=== PATIENT | female | born 1940 | race Caucasian/White ===

== ENCOUNTER 2020-03-07 09:04 | Outpatient (REF) | payer MEDICARE, OTHER, SELFPAY ==
--- NOTE | 2020-03-07 | MM_ITS ---
EXAMINATION: MM SCREENING DIGITAL BREAST TOMOSYNTHESIS, BILATERAL CLINICAL INFORMATION: Screening. Asymptomatic. The lifetime risk of breast cancer based on the Tyrer-Cuzick Model is 4%. COMPARISON: Mammography: 03/02/2019, 02/28/2018, 02/25/2017 TECHNIQUE: Digital breast tomosynthesis is performed in both the craniocaudal and mediolateral oblique views along with computer-aided detection (CAD). Synthesized 2D images are generated from the tomosynthesis. FINDINGS: There are scattered areas of fibroglandular density (ACR BI-RADS breast composition Category b). Parenchymal pattern is similar to prior studies. There is stable circumscribed nodule likely intraparenchymal node posterior upper outer right breast. Small circumscribed nodule again seen anterior 1:00 right breast. There are bilateral round and rim and ductal secretory calcifications again noted. There is no significant mass or architectural abnormality or abnormal calcifications. No significant changes. IMPRESSION: No significant changes from prior studies. ASSESSMENT: BI-RADS 2: Benign RECOMMENDATION: Routine annual mammography screening. This patient's information was entered into a reminder system with a target due date for their next mammogram.
== END 2020-03-07 09:05 | disposition home or self-care (01) ==
LOC: HO.MAMMO 09:04
PROVIDERS: PCP Internal Medicine; Visit Provider Internal Medicine
DX: Z12.31 Encounter for screening mammogram for malignant neoplasm of breast (principal)
CPT/HCPCS: 77063; 77067; 78014

== ENCOUNTER 2020-05-13 09:08 | Outpatient (REF) | payer MEDICARE, OTHER, SELFPAY ==
[2020-05-13 11:12] LABS: Alanine Aminotransferase 33 U/L (0-31); Albumin Level 4.6 g/dL (3.5-5.0); Alkaline Phosphatase 78 U/L (39-117); Aspartate Amino Transferase 27 U/L (5-31); Bilirubin Direct 0.2 mg/dL (0.0-0.5); Bilirubin Total 0.5 mg/dL (0.0-1.0); Cholesterol 194 mg/dL; HDL Cholesterol 59 mg/dL; LDL Cholesterol Calculated 104 mg/dl; Total Protein 7.1 g/dL (6.5-8.0); Triglycerides 156 mg/dL
[2020-05-13 11:39] LABS: Reflex LDLD? No
== END 2020-05-13 09:09 | disposition home or self-care (01) ==
LOC: HO.10HDL 09:08
PROVIDERS: Visit Provider Internal Medicine
DX: E78.00 Pure hypercholesterolemia, unspecified (principal)
CPT/HCPCS: 80061; 80076

== ENCOUNTER 2020-11-11 10:38 | Outpatient (REF) | payer MEDICARE, OTHER, SELFPAY ==
[2020-11-11 10:54] LABS: MANUAL DIFF FLAG NO
[2020-11-11 11:37] LABS: Basophils Percent Auto 0.5 % (0-2); Eosinophils Absolute Auto 0.4 X10*3/uL (0.0-0.4); Eosinophils Percent Auto 5.3 % (0-4); Hematocrit 44.2 % (37-47); Hemoglobin 14.4 g/dl (12.0-16.0); Imm Gran Abs Auto 0.02 X10*3/uL (0.00-0.03); Imm Gran Pct Auto 0.2 % (0.0-0.4); Lymphocytes Absolute Auto 2.4 X10*3/uL (1.2-4.9); Lymphocytes Percent Auto 28.8 % (20-40); Mean Corpuscular HGB Conc 32.6 g/dl (31.0-35.0); Mean Corpuscular Hemoglobin 31.4 pg (27.0-33.0); Mean Corpuscular Volume 96.5 fL (80-98); Monocytes Absolute Auto 0.7 X10*3/uL (0.1-1.2); Monocytes Percent Auto 8.8 % (2-11); Neutrophils Absolute Auto 4.6 X10*3/uL (2.0-8.3); Neutrophils Percent Auto 56.4 % (45-73); Platelet Count 239 X10*3/uL (160-400); Red Blood Count 4.58 X10*6/uL (4.20-5.50); Red Cell Distribution Width 12.5 % (11.0-16.0); White Blood Count 8.3 X10*3/uL (4.8-10.8)
[2020-11-11 11:52] LABS: Glucose Urine UA NEG (NEG); Leukocyte Esterase Urine NEG (NEG); Nitrite Urine NEG (NEG); PH 5.5 (5.0-8.0); Specific Gravity - Urine 1.025 (1.005-1.025); Urine Blood NEG (NEG); Urine Ketones NEG (NEG); Urine Protein TRACE MG/DL (NEG-TRACE)
[2020-11-11 11:57] LABS: Appearance Urine CLEAR; Color Urine YELLOW
[2020-11-11 13:34] LABS: Alanine Aminotransferase 27 U/L (0-31); Albumin Level 4.3 g/dL (3.5-5.0); Alkaline Phosphatase 72 U/L (39-117); Anion Gap 14 (12-20); Aspartate Amino Transferase 26 U/L (5-31); Bilirubin Total 0.6 mg/dL (0.0-1.0); Blood Urea Nitrogen 18 mg/dL (9-16); Calcium 9.4 mg/dL (8.4-10.2); Carbon Dioxide 24 mmol/L (22-29); Chloride 106 mmol/L (96-108); Cholesterol 187 mg/dL; Estimated Glomerular Filt Rate > 60; Glucose Fasting 114 mg/dL (60-99); HDL Cholesterol 55 mg/dL; LDL Cholesterol Calculated 102 mg/dl; Potassium 4.3 mmol/L (3.3-5.1); Sodium 140 mmol/L (135-145); Total Protein 6.7 g/dL (6.5-8.0); Triglycerides 150 mg/dL
[2020-11-11 13:58] LABS: Reflex LDLD? No
== END 2020-11-11 10:39 | disposition home or self-care (01) ==
LOC: HO.LNP 10:38
PROVIDERS: Visit Provider Internal Medicine
DX: E78.00 Pure hypercholesterolemia, unspecified (principal); N95.8 Other specified menopausal and perimenopausal disorders; G43.009 Migraine without aura, not intractable, without status migrainosus
CPT/HCPCS: 80053; 80061; 81003; 85025

== ENCOUNTER 2021-03-13 08:46 | Outpatient (REF) | payer MEDICARE, OTHER, SELFPAY ==
--- NOTE | ~2021-03-13 | MM_ITS ---
EXAMINATION: MM SCREENING DIGITAL BREAST TOMOSYNTHESIS, BILATERAL CLINICAL INFORMATION: Screening. Asymptomatic. The lifetime risk of breast cancer based on the Tyrer-Cuzick Model is 2%. COMPARISON: Mammography: 03/07/2020, 03/02/2019, 02/28/2018 TECHNIQUE: Digital breast tomosynthesis is performed in both the craniocaudal and mediolateral oblique views along with computer-aided detection (CAD). Synthesized 2D images are generated from the tomosynthesis. FINDINGS: There are scattered areas of fibroglandular density (ACR BI-RADS breast composition Category b). There are no significant masses, abnormal calcifications, or other abnormalities. There is no developing density. Scattered bilateral round and some ductal secretory calcifications are again seen. MM/MM tomosynthesis screening BI IMPRESSION: No mammographic evidence of malignancy. ASSESSMENT: BI-RADS 2: Benign RECOMMENDATION: Routine annual mammography screening. This patient's information was entered into a reminder system with a target due date for their next mammogram.
== END 2021-03-13 08:47 | disposition home or self-care (01) ==
LOC: HO.MAMMO 08:46
PROVIDERS: Visit Provider Internal Medicine
DX: Z12.31 Encounter for screening mammogram for malignant neoplasm of breast (principal)
CPT/HCPCS: 77063; 77067

== ENCOUNTER 2021-11-13 10:32 | Outpatient (REF) | payer MEDICARE, OTHER, SELFPAY ==
[2021-11-13 10:34] LABS: MANUAL DIFF FLAG NO
[2021-11-13 11:05] LABS: Basophils Absolute Auto 0.1 X10*3/uL (0.0-0.2); Basophils Percent Auto 0.6 % (0-2); Eosinophils Absolute Auto 0.6 X10*3/uL (0.0-0.4); Eosinophils Percent Auto 7.2 % (0-4); Hematocrit 42.3 % (37.0-47.0); Imm Gran Abs Auto 0.03 X10*3/uL (0.00-0.03); Imm Gran Pct Auto 0.4 % (0.0-0.4); Lymphocytes Absolute Auto 2.1 X10*3/uL (1.2-4.9); Lymphocytes Percent Auto 27.3 % (20-40); Mean Corpuscular HGB Conc 33.1 g/dl (31.0-35.0); Mean Corpuscular Hemoglobin 31.8 pg (27.0-33.0); Mean Corpuscular Volume 96.1 fL (80.0-98.0); Mean Platelet Volume 9.7 fL (9.4-12.3); Monocytes Absolute Auto 0.8 X10*3/uL (0.1-1.2); Monocytes Percent Auto 10.2 % (2-11); Neutrophils Absolute Auto 4.2 x10*3/uL (2.0-8.3); Neutrophils Percent Auto 54.3 % (45-73); Platelet Count 248 X10*3/uL (160-400); Red Cell Distribution Width 12.6 % (11.0-16.0); White Blood Count 7.7 X10*3/uL (4.8-10.8)
[2021-11-13 11:16] LABS: Alanine Aminotransferase 24 U/L (0-31); Albumin Level 4.3 g/dL (3.5-5.0); Alkaline Phosphatase 56 U/L (39-117); Anion Gap 12 (12-20); Aspartate Amino Transferase 23 U/L (5-31); Bilirubin Total 0.4 mg/dL (0.0-1.0); Blood Urea Nitrogen 14 mg/dL (9-16); Calcium 9.3 mg/dL (8.4-10.2); Carbon Dioxide 26 mmol/L (22-29); Chloride 105 mmol/L (96-108); Cholesterol 179 mg/dL; Estimated Glomerular Filt Rate > 60; Glucose Fasting 109 mg/dL (60-99); HDL Cholesterol 56 mg/dL; LDL Cholesterol Calculated 94 mg/dl; Potassium 4.4 mmol/L (3.3-5.1); Sodium 139 mmol/L (135-145); Total Protein 6.8 g/dL (6.5-8.0); Triglycerides 149 mg/dL
[2021-11-13 11:32] LABS: Appearance Urine CLEAR; Color Urine YELLOW; Glucose Urine UA NEG (NEG); Leukocyte Esterase Urine NEG (NEG); Nitrite Urine NEG (NEG); PH 5.5 (5.0-8.0); Specific Gravity - Urine 1.015 (1.005-1.025); Urine Blood NEG (NEG); Urine Ketones NEG (NEG); Urine Protein NEG (NEG-TRACE)
== END 2021-11-13 10:33 | disposition home or self-care (01) ==
LOC: HO.LNP 10:32
PROVIDERS: Visit Provider Internal Medicine
DX: E78.00 Pure hypercholesterolemia, unspecified (principal)
CPT/HCPCS: 80053; 80061; 81003; 85025

== ENCOUNTER 2022-03-19 07:43 | Outpatient (REF) | payer MEDICARE, OTHER, SELFPAY ==
--- NOTE | ~2022-03-19 | MM_ITS ---
EXAMINATION: MM SCREENING DIGITAL BREAST TOMOSYNTHESIS, BILATERAL CLINICAL INFORMATION: Screening. Asymptomatic. The lifetime risk of breast cancer based on the Tyrer-Cuzick Model is 2%. COMPARISON: Mammography: 03/13/2021, 03/07/2020, 03/02/2019 TECHNIQUE: Digital breast tomosynthesis is performed in both the craniocaudal and mediolateral oblique views along with computer-aided detection (CAD). Synthesized 2D images are generated from the tomosynthesis. FINDINGS: There are scattered areas of fibroglandular density (ACR BI-RADS breast composition Category b). There are no significant masses, abnormal calcifications, or other abnormalities. Parenchymal pattern is similar to prior studies. No developing density or architectural abnormality. Again, there are scattered bilateral round, coarse, and scattered ductal secretory calcifications. The axilla are unremarkable. No significant changes. MM/MM tomosynthesis screening BI IMPRESSION: No mammographic evidence of malignancy. ASSESSMENT: BI-RADS 2: Benign RECOMMENDATION: Routine annual mammography screening. This patient's information was entered into a reminder system with a target due date for their next mammogram.
== END 2022-03-19 07:44 | disposition home or self-care (01) ==
LOC: HO.MAMMO 07:43
PROVIDERS: Visit Provider Internal Medicine
DX: Z12.31 Encounter for screening mammogram for malignant neoplasm of breast (principal)
CPT/HCPCS: 77063; 77067

== ENCOUNTER 2022-05-13 10:56 | Outpatient (REF) | payer MEDICARE, OTHER, SELFPAY ==
[2022-05-13 12:50] LABS: Alanine Aminotransferase 24 U/L (0-31); Albumin Level 4.5 g/dL (3.5-5.0); Alkaline Phosphatase 61 U/L (39-117); Aspartate Amino Transferase 23 U/L (5-31); Bilirubin Direct 0.2 mg/dL (0.0-0.5); Bilirubin Total 0.5 mg/dL (0.0-1.0); Cholesterol 201 mg/dL; HDL Cholesterol 58 mg/dL; LDL Cholesterol Calculated 114 mg/dl; Total Protein 6.9 g/dL (6.5-8.0); Triglycerides 146 mg/dL
[2022-05-13 14:34] LABS: Reflex LDLD? No
== END 2022-05-13 10:57 | disposition home or self-care (01) ==
LOC: HO.LNP 10:56
PROVIDERS: Visit Provider Internal Medicine
DX: E78.00 Pure hypercholesterolemia, unspecified (principal)
CPT/HCPCS: 80061; 80076

== ENCOUNTER 2022-11-12 11:16 | Outpatient (REF) | payer MEDICARE, OTHER, SELFPAY ==
[2022-11-12 11:18] LABS: MANUAL DIFF FLAG NO
[2022-11-12 11:47] LABS: Basophils Absolute Auto 0.1 X10*3/uL (0.0-0.2); Basophils Percent Auto 0.8 % (0-2); Eosinophils Absolute Auto 0.5 X10*3/uL (0.0-0.4); Eosinophils Percent Auto 6.4 % (0-4); Hematocrit 43.6 % (37.0-47.0); Hemoglobin 14.2 g/dl (12.0-16.0); Imm Gran Abs Auto 0.03 X10*3/uL (0.00-0.03); Imm Gran Pct Auto 0.4 % (0.0-0.4); Lymphocytes Absolute Auto 2.1 X10*3/uL (1.2-4.9); Lymphocytes Percent Auto 27.1 % (20-40); Mean Corpuscular HGB Conc 32.6 g/dl (31.0-35.0); Mean Corpuscular Hemoglobin 31.1 pg (27.0-33.0); Mean Corpuscular Volume 95.6 fL (80.0-98.0); Mean Platelet Volume 9.5 fL (9.4-12.3); Monocytes Absolute Auto 0.7 X10*3/uL (0.1-1.2); Monocytes Percent Auto 9.1 % (2-11); Neutrophils Absolute Auto 4.4 x10*3/uL (2.0-8.3); Neutrophils Percent Auto 56.2 % (45-73); Platelet Count 252 X10*3/uL (160-400); Red Blood Count 4.56 X10*6/uL (4.20-5.50); Red Cell Distribution Width 12.5 % (11.0-16.0); White Blood Count 7.9 X10*3/uL (4.8-10.8)
[2022-11-12 11:50] LABS: Appearance Urine Clear; Color Urine Yellow; Glucose Urine UA Negative (Negative); Leukocyte Esterase Urine Trace (Negative); Nitrite Urine Negative (Negative); UMIC TRIGGER UACC YES; Urine Blood Negative (Negative); Urine Ketones Negative (Negative); Urine Protein Negative (Neg-Trace)
[2022-11-12 11:53] LABS: Bacteria Urine None Seen (None Seen); RBC Urine 0-2 /HPF (0-2); Squamous Epithelial Cell Urine 0-2 /HPF (0-2); WBC Urine 0-5 /HPF (0-5)
[2022-11-12 12:19] LABS: Alanine Aminotransferase 26 U/L (0-31); Albumin Level 4.3 g/dL (3.5-5.0); Alkaline Phosphatase 57 U/L (39-117); Anion Gap 11 (12-20); Aspartate Amino Transferase 28 U/L (5-31); Bilirubin Total 0.6 mg/dL (0.0-1.0); Blood Urea Nitrogen 12 mg/dL (9-16); Calcium 9.5 mg/dL (8.4-10.2); Carbon Dioxide 25 mmol/L (22-29); Chloride 107 mmol/L (96-108); Cholesterol 171 mg/dL; Estimated Glomerular Filt Rate > 60; Glucose Fasting 112 mg/dL (60-99); HDL Cholesterol 53 mg/dL; LDL Cholesterol Calculated 91 mg/dl; Potassium 4.6 mmol/L (3.3-5.1); Sodium 138 mmol/L (135-145); Total Protein 6.8 g/dL (6.5-8.0); Triglycerides 139 mg/dL
== END 2022-11-12 11:17 | disposition home or self-care (01) ==
LOC: HO.LNP 11:16
PROVIDERS: Visit Provider Internal Medicine
DX: E78.00 Pure hypercholesterolemia, unspecified (principal)
CPT/HCPCS: 80053; 80061; 81001; 85025

== ENCOUNTER 2023-03-25 07:54 | Outpatient (REF) | payer MEDICARE, OTHER, SELFPAY ==
--- NOTE | ~2023-03-25 | MM_ITS ---
EXAMINATION: MM SCREENING DIGITAL BREAST TOMOSYNTHESIS, BILATERAL CLINICAL INFORMATION: Screening. Asymptomatic. COMPARISON: Mammography: This study is compared with prior exams dating back to TECHNIQUE: Digital breast tomosynthesis is performed in both the craniocaudal and mediolateral oblique views along with computer-aided detection (CAD). Synthesized 2D images are generated from the tomosynthesis. FINDINGS: There are scattered areas of fibroglandular density (ACR BI-RADS breast composition Category b). In the upper outer quadrant of the left breast, there is an area of focal asymmetry for which additional mammographic and targeted sonographic evaluation is advised. Combined with the standard diagnostic MLO and CC spot compression of the the area of interest and a full lateral view of the left breast, rolled CC views of the left breast are also advised. All of the images should be combination 2-D and tomosynthesis. In the right breast, there are no significant masses, abnormal calcifications, or other abnormalities. There are benign calcifications in the right breast. MM/MM tomosynthesis screening BI IMPRESSION: Focal asymmetry of the left breast warrants additional mammographic and targeted sonographic imaging. Bilateral benign calcifications. No mammographic signs of malignancy right breast. ASSESSMENT: BI-RADS BI-RADS 0 - Incomplete: Needs additional Imaging. RECOMMENDATION: 1. Additional views of the left breast 2. Targeted ultrasound if warranted after review of the additional views. 3. Radiology department staff will contact the patient for additional imaging. Additional Imaging required This examination should not preclude the clinical evaluation of a suspicious palpable abnormality. This patient's information was entered into a reminder system with a target due date for their next mammogram.
== END 2023-03-25 07:55 | disposition home or self-care (01) ==
LOC: HO.MAMMO 07:54
PROVIDERS: PCP Internal Medicine; Visit Provider Internal Medicine
DX: Z12.31 Encounter for screening mammogram for malignant neoplasm of breast (principal)
CPT/HCPCS: 77063; 77067

== ENCOUNTER → 2023-03-25 08:00 | Outpatient (BNV) | payer MEDICARE, OTHER, SELFPAY | PROVIDERS: PCP Internal Medicine; Visit Provider Radiology Diagnostic Radiology | DX: Z12.31 Encounter for screening mammogram for malignant neoplasm of breast (principal) | CPT/HCPCS: 77063; 77067 ==

== ENCOUNTER 2023-04-14 12:23 | Outpatient (REF) | payer MEDICARE, OTHER, SELFPAY ==
--- NOTE | ~2023-04-14 | MM_ITS ---
EXAMINATION: MM DIAGNOSTIC DIGITAL BREAST TOMOSYNTHESIS, LEFT CLINICAL INFORMATION: Follow-up asymmetric density upper outer left breast seen on screening exam. COMPARISON: Mammography: Screening mammography 03/25/2023, 03/19/2022, 03/13/2021, 03/07/2020, and dating back to 2016. TECHNIQUE: Digital breast tomosynthesis is performed. 2D images are generated from the tomosynthesis. The following views are obtained: Full-field 3-D left CC rolled lateral, full-field 3-D left CC rolled medial, full-field left mediolateral view, 3-D spot compression view in the left CC projection, 3-D spot compression view in the left MLO projection. FINDINGS: There are scattered areas of fibroglandular density (ACR BI-RADS breast composition Category b). Diagnostic views demonstrate no persistent suspicious mass, or area of architectural distortion. A 6 mm mass is noted in the anterior one third of the left breast, upper and lateral to the nipple. This is been stable from exams dating back to 2019 and beyond, presumably a benign fibroadenoma. Otherwise, aside from dystrophic and secretory calcifications, there are no suspicious abnormalities in the left breast. MM/MM tomosynthesis added views L IMPRESSION: No persistent suspicious abnormalities left breast. Stable 6 mm circumscribed oval mass in the anterior upper outer left breast, unchanged and consistent with a fibroadenoma. Recommend patient return to routine annual screening mammography. ASSESSMENT: BI-RADS BI-RADS 2 - Benign Findings RECOMMENDATION: 1 year F/U Results were provided to the patient at time of visit by the technologist. This patient's information was entered into a reminder system with a target due date for their next mammogram.
== END 2023-04-14 12:24 | disposition home or self-care (01) ==
LOC: HO.MAMMO 12:23
PROVIDERS: PCP Internal Medicine; Visit Provider Internal Medicine
DX: N64.89 Other specified disorders of breast (principal)
CPT/HCPCS: 77061; 77065

== ENCOUNTER → 2023-04-14 12:30 | Outpatient (BNV) | payer MEDICARE, OTHER, SELFPAY | PROVIDERS: PCP Internal Medicine; Visit Provider Radiology Diagnostic Radiology | DX: D24.2 Benign neoplasm of left breast (principal) | CPT/HCPCS: 77061; 77065; G0279 ==

== ENCOUNTER 2023-05-17 11:18 | Outpatient (REF) | payer MEDICARE, OTHER, SELFPAY ==
[2023-05-17 12:00] LABS: Alanine Aminotransferase 20 U/L (0-31); Albumin Level 4.4 g/dL (3.5-5.0); Alkaline Phosphatase 53 U/L (39-117); Aspartate Amino Transferase 22 U/L (5-31); Bilirubin Direct 0.2 mg/dL (0.0-0.5); Bilirubin Total 0.5 mg/dL (0.0-1.0); Cholesterol 181 mg/dL (<200); HDL Cholesterol 54 mg/dL (>40); LDL Cholesterol Calculated 95 mg/dL (<100); Total Protein 7.2 g/dL (6.5-8.0); Triglycerides 160 mg/dL (<150)
[2023-05-17 12:27] LABS: Reflex LDLD? No
== END 2023-05-17 11:19 | disposition home or self-care (01) ==
LOC: HO.LNP 11:18
PROVIDERS: Visit Provider Internal Medicine
DX: E78.00 Pure hypercholesterolemia, unspecified (principal)
CPT/HCPCS: 80061; 80076

== ENCOUNTER 2023-11-15 11:27 | Outpatient (REF) | payer MEDICARE, OTHER, SELFPAY ==
[2023-11-15 11:30] LABS: MANUAL DIFF FLAG NO
[2023-11-15 12:03] LABS: Appearance Urine Clear; Color Urine Yellow; Glucose Urine UA Negative (Negative); Leukocyte Esterase Urine Negative (Negative); Nitrite Urine Negative (Negative); Specific Gravity - Urine 1.015 (1.005-1.025); Urine Blood Negative (Negative); Urine Ketones Negative (Negative); Urine Protein Negative (Neg-Trace)
[2023-11-15 12:04] LABS: Basophils Absolute Auto 0.1 X10*3/uL (0.0-0.2); Basophils Percent Auto 0.6 % (0-2); Eosinophils Absolute Auto 0.6 X10*3/uL (0.0-0.4); Eosinophils Percent Auto 6.8 % (0-4); Hemoglobin 14.9 g/dl (12.0-16.0); Imm Gran Abs Auto 0.04 X10*3/uL (0.00-0.03); Imm Gran Pct Auto 0.5 % (0.0-0.4); Lymphocytes Absolute Auto 2.2 X10*3/uL (1.2-4.9); Lymphocytes Percent Auto 25.2 % (20-40); Mean Corpuscular HGB Conc 33.9 g/dl (31.0-35.0); Mean Corpuscular Hemoglobin 32.3 pg (27.0-33.0); Mean Corpuscular Volume 95.4 fL (80.0-98.0); Mean Platelet Volume 9.1 fL (9.4-12.3); Monocytes Absolute Auto 0.8 X10*3/uL (0.1-1.2); Monocytes Percent Auto 9.7 % (2-11); Neutrophils Absolute Auto 4.9 x10*3/uL (2.0-8.3); Neutrophils Percent Auto 57.2 % (45-73); Platelet Count 246 X10*3/uL (160-400); Red Blood Count 4.61 X10*6/uL (4.20-5.50); Red Cell Distribution Width 12.6 % (11.0-16.0); White Blood Count 8.6 X10*3/uL (4.8-10.8)
[2023-11-15 12:10] LABS: Bacteria Urine None Seen (None Seen); Hyaline Casts Urine 0-2 /LPF (0-2); RBC Urine 0-2 /HPF (0-2); Squamous Epithelial Cell Urine 0-2 /HPF (0-2); WBC Urine 0-5 /HPF (0-5)
[2023-11-15 12:37] LABS: Alanine Aminotransferase 26 U/L (0-31); Albumin Level 4.5 g/dL (3.5-5.0); Alkaline Phosphatase 49 U/L (39-117); Anion Gap 14 (12-20); Aspartate Amino Transferase 24 U/L (5-31); Bilirubin Total 0.5 mg/dL (0.0-1.0); Blood Urea Nitrogen 16 mg/dL (9-16); Calcium 9.9 mg/dL (8.4-10.2); Carbon Dioxide 25 mmol/L (22-29); Chloride 106 mmol/L (96-108); Cholesterol 185 mg/dL (<200); Estimated Glomerular Filt Rate > 60; Glucose Fasting 108 mg/dL (60-99); HDL Cholesterol 56 mg/dL (>40); LDL Cholesterol Calculated 101 mg/dL (<100); Potassium 4.3 mmol/L (3.3-5.1); Sodium 141 mmol/L (135-145); Total Protein 7.2 g/dL (6.5-8.0); Triglycerides 143 mg/dL (<150)
== END 2023-11-15 11:28 | disposition home or self-care (01) ==
LOC: HO.LNP 11:27
PROVIDERS: Visit Provider Internal Medicine
DX: E78.00 Pure hypercholesterolemia, unspecified (principal)
CPT/HCPCS: 80053; 80061; 81001; 85025

== ENCOUNTER 2024-03-13 13:27 | Outpatient (REF) | payer MEDICARE, OTHER, SELFPAY ==
[2024-03-13 13:43] LABS: Appearance Urine Cloudy; Color Urine Yellow; Glucose Urine UA Negative (Negative); Leukocyte Esterase Urine Large (3+) (Negative); Nitrite Urine Negative (Negative); PH 5.5 (5.0-9.0); Specific Gravity - Urine 1.015 (1.005-1.025); UMIC TRIGGER UACC YES; Urine Blood Moderate (2+) (Negative); Urine Ketones Negative (Negative); Urine Protein Negative (Neg-Trace)
[2024-03-13 13:52] LABS: Bacteria Urine 1+ (None Seen); Hyaline Casts Urine 0-2 /LPF (0-2); Squamous Epithelial Cell Urine 0-2 /HPF (0-2); UACC Culture Trigger YES; WBC Urine >50 /HPF (0-5)
== END 2024-03-13 13:28 | disposition home or self-care (01) ==
LOC: HO.LNP 13:27
PROVIDERS: Visit Provider Internal Medicine
DX: N39.0 Urinary tract infection, site not specified (principal); B96.20 Unspecified Escherichia coli [E. coli] as the cause of diseases classified elsewhere
CPT/HCPCS: 81001; 87086; 87088; 87186

== ENCOUNTER 2024-04-03 08:36 | Outpatient (REF) | payer MEDICARE, OTHER, SELFPAY ==
--- NOTE | ~2024-04-03 | MM_ITS ---
EXAMINATION: MM SCREENING DIGITAL BREAST TOMOSYNTHESIS, BILATERAL CLINICAL INFORMATION: Screening. Asymptomatic. COMPARISON: Mammography: Comparison is made with available priors TECHNIQUE: Digital breast mammography with tomosynthesis is performed in both the craniocaudal and mediolateral oblique views along with computer-aided detection (CAD). FINDINGS: The breasts are heterogeneously dense, which may obscure small masses (ACR BI-RADS breast composition Category c). There are no significant masses, abnormal calcifications, or other abnormalities. MM/MM tomosynthesis screening BI IMPRESSION: No mammographic evidence of malignancy. ASSESSMENT: BI-RADS BI-RADS 1 - Negative RECOMMENDATION: Routine annual mammography screening. 1 year F/U This examination should not preclude the clinical evaluation of a suspicious palpable abnormality. This patient's information was entered into a reminder system with a target due date for their next mammogram. Electronically signed by: Elena Clark DO 04/11/2024 10:29 AM LAILA
== END 2024-04-03 08:37 | disposition home or self-care (01) ==
LOC: HO.MAMMO 08:36
PROVIDERS: PCP Internal Medicine; Visit Provider Internal Medicine
DX: Z13.89 Encounter for screening for other disorder (principal)
CPT/HCPCS: 77063; 77067

== ENCOUNTER → 2024-04-03 08:45 | Outpatient (BNV) | payer MEDICARE, OTHER, SELFPAY | PROVIDERS: PCP Internal Medicine; Visit Provider Internal Medicine | DX: Z12.31 Encounter for screening mammogram for malignant neoplasm of breast (principal) | CPT/HCPCS: 77063; 77067 ==

== ENCOUNTER 2024-04-03 11:24 | Outpatient (REF) | payer MEDICARE, OTHER, SELFPAY ==
[2024-04-03 11:48] LABS: Appearance Urine Clear; Color Urine Yellow; Glucose Urine UA Negative (Negative); Leukocyte Esterase Urine Negative (Negative); Nitrite Urine Negative (Negative); Specific Gravity - Urine >= 1.030 (1.005-1.025); Urine Blood Negative (Negative); Urine Ketones Negative (Negative); Urine Protein Trace mg/dL (Neg-Trace)
[2024-04-03 11:54] LABS: Bacteria Urine None Seen (None Seen); Hyaline Casts Urine 0-2 /LPF (0-2); RBC Urine 0-2 /HPF (0-2); WBC Urine 0-5 /HPF (0-5)
== END 2024-04-03 11:25 | disposition home or self-care (01) ==
LOC: HO.LNP 11:24
PROVIDERS: Visit Provider Internal Medicine
DX: Z12.31 Encounter for screening mammogram for malignant neoplasm of breast (principal); N39.0 Urinary tract infection, site not specified
CPT/HCPCS: 77063; 77067; 81001

== ENCOUNTER 2024-05-15 14:22 | Outpatient (REF) | payer MEDICARE, OTHER, SELFPAY ==
[2024-05-15 15:26] LABS: Albumin Level 4.5 g/dL (3.5-5.0); Alkaline Phosphatase 60 U/L (39-117); Aspartate Amino Transferase 34 U/L (5-31); Bilirubin Direct 0.1 mg/dL (0.0-0.5); Bilirubin Total 0.4 mg/dL (0.0-1.0); Cholesterol 209 mg/dL (<200); HDL Cholesterol 57 mg/dL (>40); LDL Cholesterol Calculated 115 mg/dL (<100); Total Protein 7.7 g/dL (6.5-8.0); Triglycerides 188 mg/dL (<150)
[2024-05-15 16:18] LABS: Alanine Aminotransferase 32 U/L (0-31)
[2024-05-15 17:04] LABS: Reflex LDLD? No
--- OUTSIDE RECORDS SUMMARY | 2024-05-16 22:04 | XMS_ITS ---
Author Organization Rudy Proctor MD Address [address] [place], [place] [phone] Care Team Providers Care Supervisor Public Health Nursing Name Role Phone Rudy Proctor Primary Care Provider [phone] ALLERGIES Allergen (clinical drug ingredient) Drug/Non Drug Allergy documented on EMR Reaction Allergy Type Onset Date Status Latex Latex (uncoded) rash Allergy Acti ve REASON FOR VISIT r achilles, after visiting [place] MEDICATIONS Medication SIG (Take, Route, Frequency, Duration) Notes [...] a day for 90 days 07/22/2022 Not-Taking Oivruqkfjg-AJJW-Innualhl 50-325-40 mg TAKE 1 TABLET EVERY 6 HOURS NEEDED Active Propranolol HCl ER 60 mg TAKE 1 CAPSULE DAILY Active VITAL SIGNS BMI 24.02 kg/m2 04/23/2024 Blood pressure systolic 118 mm Hg 04/23/20 24 Blood pressure diastolic 82 mm Hg 024 Height 60 in 04/23/2024 Weight 123 lbs 04/23/2024 Encounters Encounter Location Date Provider Diagnosis Rudy Proctor MD [address] [place] [address] [place] [phone] 04/23/2024 Rudy Proctor Right Achilles tendinitis M76.61 ASSESSMENTS Encounter Date Diagnosis Assessment Notes Treatment Notes Treatment Clinical Notes 04/23/2024 Right Achilles tendinitis (ICD-10 - M76.61) rest and ice and use support. PLAN OF TREATMENT Treatment Notes Assessment Notes Right Achilles tendinitis rest and ice a nd use support. Next Appt Details Provider Name:Rudy burkett, 05/22/2024 09:15:00 AM, [address] [place] [address], Suite [facility], [place], [place], [phone], Provider Name:Rudy burkett, 11/20/2024 07:30:00 AM, [address] [place] [address], [place] [address], [place], [place], [phone], Provider Name:Rudy burkett, 11/27/2024 10:30:00 AM, [address] [place] [address], [place] [address], [place], [place], [phone], Progress Notes * Examination Category Sub-Category Detail Notes General Examination GENERAL APPEARANCE: alert, w ell hydrated, in no distress EXTREMITIES: abnormal with mild s welling on the middle of her achilles with mild tenderness
--- OUTSIDE RECORDS SUMMARY | 2024-05-16 22:04 | XMS_ITS ---
Author Organization Rudy Proctor MD Address [address] [place], [place] [phone] Care Team Providers Care Sergeant At Arms Name Role Phone Rudy Proctor Primary Care Provider RESULTS Component Value Reference Range Notes Liver Panel Reviewed date:05/15/2024 05:09:51 PM Interpretation: Performing Lab:[facility], [address] [place] [phone] Notes/Report: Bilirubin Total 0.4 0.0-1.0 mg/dL Bilirubin Direct 0.1 0.0-0.5 mg/dL Aspartate Amino Transferase 34 5-31 U/L Slight Hemolysis.Interpret result with caution. Alanine Aminotransferase 32 0-31 U/L Total Protein 7.7 6.5-8.0 g/dL Albumin Level 4.5 3.5-5.0 g/dL Alkaline Phosphatase 60 39-117 U/L Lipid Panel with Reflex Reviewed date:05/15/2024 05:09:42 PM Interpretation: Performing Lab:[facility], [address] [place] [phone] Notes/Report: Triglycerides 188 <150 mg/dL Slight Lipemia. [...] Location Date Provider Diagnosis Rudy Proctor MD [address] [place] [phone] 05/15/2024 Rudy Proctor Hypercholesteremia E 78.00 ASSESSMENTS Encounter Date Diagnosis Assessment Notes Treatment Notes Treatment Clinical Notes 05/15/2024 Hypercholesteremia (ICD-10 - E78.00) PLAN OF TREATMENT Next Appt Details Provider Name:Rudy burkett, 05/22/2024 09:15:00 AM, [address] [place] [address], [address], [phone], Provider Name:Rudy burkett, 11/20/2024 07:30:00 AM, [address] [place] [address], [place] [address], [place], [place], [phone], Provider Name:Rudy burkett, 11/27/2024 10:30:00 AM, [address] [place] [address], [address], [phone],
--- OUTSIDE RECORDS SUMMARY | 2024-05-16 22:05 | XMS_ITS | Patient Health Record ---
Author Organization Rudy Proctor MD Address [address] [place], [place] [phone] Care Team Providers Care Mineral Industry Teacher Name Role Phone Rudy Proctor Primary Care Provider ALLERGIES Allergen (clinical drug ingredient) Drug/Non Drug Allergy documented on EMR Reaction Allergy Type Onset Date Status Latex Latex (uncoded) rash Allergy Acti ve RESULTS Component Value Reference Range Notes Liver Panel Reviewed date:05/17/2023 12:23:09 PM Interpretation: Performing Lab:[address] [phone] Notes/Report: Bilirubin Total 0.5 0.0-1.0 mg/dL Bilirubin Direct 0.2 0.0-0.5 mg/dL Aspartate Amino Transferase 22 5-31 U/L Alanine Aminotransferase 20 0-31 U/L Total Protein 7.2 6.5-8.0 g/dL Albumin Level 4.4 3.5-5.0 g/dL Alkaline Phosphatase 53 39-117 U/L Lipid Panel with Reflex Reviewed date:05/17/2023 12:30:01 PM Interpretation: Performing Lab:[address] [phone] Notes/Report: Triglycerides 160 <150 mg/dL Desirable Triglyceride: less than 150 mg/dL Borderline High Triglyceride 150-199 mg/dL High Triglyceride: 200-499 mg/dL Very High Triglyceride: greater than or equal to 5OO mg/dL Cholesterol 181 <200 mg/dL Desirable Cholesterol: less than 200 mg/dL Borderline High Cholesterol: 200-239 mg/dL High Cholesterol: greater than 239 mg/dL LDL Cholesterol Calculated 95 <100 mg/dL Desirable LDL: less than 100 mg/dL Near Optimal/Above Optimal LDL: 110-129 mg/dL Borderline High LDL: 130-159 mg/dL High LDL: 160-189 mg/dL Very High LDL: greater than or equal to 190 mg/dL HDL Cholesterol 54 >40 mg/dL Desirable HDL: greater than 40 mg/dL Note: This HDL assay may give artificially low results in patients with liver disease. Complete Blood Count Auto Di ff Reviewed date:11/15/2023 12:43:24 PM Interpretation: Performing Lab:[facility], [address] [place] [phone] Notes/Report: White Blood Count 8.6 4.8-10.8 X10*3/uL Red Blood Count 4.61 4.20-5.50 X10*6/uL Hemoglobin 14.9 12.0-16.0 g/dl Hematocrit 44.0 37.0-47.0 % Mean Corpuscular Volume 95.4 80.0-98.0 fL Mean Corpuscular Hemoglobin 32.3 27.0-33.0 pg Mean Corpuscular HGB Conc 33.9 31.0-35.0 g/dl Red Cell Distribution Width 12.6 11.0-16.0 % Platelet Count 246 160-400 X10*3/uL Mean Platelet Volume 9.1 9.4-12.3 fL Neutrophils Percent Auto 57.2 45-73 % Imm Gran Pct Auto 0.5 0.0-0.4 % Lymphocytes Percent Auto 25.2 20-40 % Monocytes Percent Auto 9.7 2-11 % Eosinophils Percent Auto 6.8 0-4 % Basophils Percent Auto 0.6 0-2 % NRBC Pct Auto 0.0 0.0-0.2 /100WBC Neutrophils Absolute Auto 4.9 2.0-8.3 x10*3/u L Imm Gran Abs Auto 0.04 0.00-0.03 X10*3/uL Lymphocytes Absolute Auto 2.2 1.2-4.9 X10*3/u L Monocytes Absolute Auto 0.8 0.1-1.2 X10*3/uL Eosinophils Absolute Auto 0.6 0.0-0.4 X10*3/u L Basophils Absolute Auto 0.1 0.0-0.2 X10*3/uL NRBC Abs Auto 0.000 0.0-0.012 X10*3/uL Comprehensive [place]. Panel Fa st Reviewed date:11/15/2023 12:54:19 PM Interpretation: Performing Lab:[facility], [address] [place] [phone] Notes/Report: Sodium 141 135-145 mmol/L Potassium 4.3 3.3-5.1 mmol/L Chloride 106 96-108 mmol/L Carbon Dioxide 25 22-29 mmol/L Anion Gap 14 12-20 Blood Urea Nitrogen 16 9-16 mg/dL Creatinine 0.76 0.5-1.4 mg/dL Estimated Glomerular Filt Rate > 60 NOTE: For -[place] individuals, multiply the result by 1.210. Chronic Kidney Disease: Estimated GFR < 60 mL/min/1.73m2 Severe Kidney Disease: Estimated GFR < 15 mL/min/1.73m2 Glucose Fasting 108 60-99 mg/dL A fasting glucose from 100-125 mg/dl is considered impaired (pre-diabetes). Calcium 9.9 8.4-10.2 mg/dL Bilirubin Total 0.5 0.0-1.0 mg/dL Aspartate Amino Transferase 24 5-31 U/L Alanine Aminotransferase 26 0-31 U/L Total Protein 7.2 6.5-8.0 g/dL Albumin Level 4.5 3.5-5.0 g/dL Alkaline Phosphatase 49 39-117 U/L Lipid Panel Reviewed date:11/15/2023 12:40:36 PM Interpretation: Performing Lab:[facility], [address] [place] [phone] Notes/Report: Triglycerides 143 <150 mg/dL Desirable Triglyceride: less than 150 mg/dL Borderline High Triglyceride 150-199 mg/dL High Triglyceride: 200-499 mg/dL Very High Triglyceride: greater than or equal to 5OO mg/dL Cholesterol 185 <200 mg/dL Desirable Cholesterol: less than 200 mg/dL Borderline High Cholesterol: 200-239 mg/dL High Cholesterol: greater than 239 mg/dL LDL Cholesterol Calculated 101 <100 mg/dL Desirable LDL: less than 100 mg/dL Near Optimal/Above Optimal LDL: 110-129 mg/dL Borderline High LDL: 130-159 mg/dL High LDL: 160-189 mg/dL Very High LDL: greater than or equal to 190 mg/dL HDL Cholesterol 56 >40 mg/dL Desirable HDL: greater than 40 mg/dL Note: This HDL assay may give artificially low results in patients with liver disease. UA ClnCatch+Micro w/rflx Cul t Reviewed date:11/15/2023 04:29:39 PM Interpretation: Performing Lab:[facility], [address] [place] [phone] Notes/Report: Urine, Clean Catch Color Urine Yellow Appearance Urine Clear PH 5.0 5.0-9.0 Glucose Urine UA Negative Negative mg/dL Urine Blood Negative Negative Specific [place] - Urine 1.015 1.005-1.025 Urine Protein Negative Neg-Trace mg/dL Urine Ketones Negative Negative mg/dL Nitrite Urine Negative Negative Leukocyte Esterase Urine Negative Negative RBC Urine 0-2 0-2 /HPF WBC Urine 0-5 0-5 /HPF Squamous Epithelial Cell Urine 0-2 0-2 /HPF Bacteria Urine None Seen None Seen Hyaline Casts Urine 0-2 0-2 /LPF Urine Culture Reviewed date:03/15/2024 08:59:13 AM Interpretation: Performing Lab:[facility], [address] [place] [phone] Notes/Report: O:ESCCOL Escherichia coli Urine Culture Quant Urine Culture > 100,000 cfu/mL Ampicillin 8 Cefazolin <=4 Ceftriaxone <=0.25 Ciprofloxacin <=0.25 Gentamicin <=1 Nitrofurantoin <=16 Trimethoprim/Sulfamethoxazo le <=20 UA ClnCatch+Micro w/rflx Cul t Reviewed date:03/13/2024 02:25:42 PM Interpretation: Performing Lab:[facility], [address] [place] [phone] Notes/Report: Urine, Clean Catch Color Urine Yellow Appearance Urine Cloudy PH 5.5 5.0-9.0 Glucose Urine UA Negative Negative mg/dL Urine Blood Moderate (2+) Negative Specific [place] - Urine 1.015 1.005-1.025 Urine Protein Negative Neg-Trace mg/dL Urine Ketones Negative Negative mg/dL Nitrite Urine Negative Negative Leukocyte Esterase Urine Large (3+) Negative RBC Urine 3-5 0-2 /HPF WBC Urine >50 0-5 /HPF Squamous Epithelial Cell Urine 0-2 0-2 /HPF Bacteria Urine 1+ None Seen Hyaline Casts Urine 0-2 0-2 /LPF UA ClnCatch+Micro w/rflx Cul t Reviewed date:04/03/2024 12:37:23 PM Interpretation: Performing Lab:[facility], [address] [place] [phone] Notes/Report: [id number] Urine, Clean Catch Color Urine Yellow Appearance Urine Clear PH 5.0 5.0-9.0 Glucose Urine UA Negative Negative mg/dL Urine Blood Negative Negative Specific [place] - Urine >= 1.030 1.005-1.025 Urine Protein Trace Neg-Trace mg/dL Urine Ketones Negative Negative mg/dL Nitrite Urine Negative Negative Leukocyte Esterase Urine Negative Negative RBC Urine 0-2 0-2 /HPF WBC Urine 0-5 0-5 /HPF Squamous Epithelial Cell Urine 3-5 0-2 /HPF Bacteria Urine None Seen None Seen Hyaline Casts Urine 0-2 0-2 /LPF MM tomosynthesis screening B I Reviewed date:04/12/2024 12:41:06 PM Interpretation: Performing Lab: Notes/Report: [address] [place] [address] Mammography Report Signed Patient: Latoya Vega MR#: [id number] : 1940 Acct:[id number] Age/Sex: 83 / F ADM Date: 04/03/24 Loc: HO.MAMMO Attending Dr: Rudy Proctor MD Ordering Physician: Rudy Proctor MD Results: 1Ne gative Date of Service: 04/03/24 Follow Up: 1 Year From [facility] Mammogram Procedure(s): MM tomosynthesis screening BI Accession Number(s): [id number] cc: Rudy Proctor MD EXAMINATION: MM SCREENING DIGITAL BREAST TOMOSYNTHESIS, BILATERAL CLINICAL INFORMATION: Screening. Asymptomatic. COMPARISON: Mammography: Comparison is made with available priors TECHNIQUE: Digital breast mammography with tomosynthesis is performed in both the craniocaudal and mediolateral oblique views along with computer-aided detection (CAD). FINDINGS: The breasts are heterogeneously dense, which may obscure small masses (ACR BI-RADS breast composition Category c). There are no significant masses, abnormal calcifications, or other abnormalities. MM/MM tomosynthesis screening BI IMPRESSION: No mammographic evidence of malignancy. ASSESSMENT: BI-RADS BI-RADS 1 - Negative RECOMMENDATION: Routine annual mammography screening. 1 year F/U This examination should not preclude the clinical evaluation of a suspicious palpable abnormality. This patient's information was entered into a reminder system with a target due date for their next mammogram. Electronically signed by: Elena Clark DO 04/11/2024 10:29 AM [facility] Dictated By: Elena Clark DO Signed By: <Electronically signed by Elena Clark DO in OV> 04/11/24 1029 DD/ 0845 TD/TT: 04/03/2414 Dust Mop Maker: Nahum Baxter Reviewed date:05/15/2024 05:06:10 PM Interpretation: Performing Lab:[facility], [address] [place] [phone] Notes/Report: Nahum Baxter See Note Specimen held untested for 24 hours; Call to request Chemistry testing. Liver Panel Reviewed date:05/15/2024 05:09:51 PM Interpretation: Performing Lab:[facility], [address] [place] [phone] Notes/Report: Bilirubin Total 0.4 0.0-1.0 mg/dL Bilirubin Direct 0.1 0.0-0.5 mg/dL Aspartate Amino Transferase 34 5-31 U/L Slight Hemolysis.Interpret result with caution. Alanine Aminotransferase 32 0-31 U/L Total Protein 7.7 6.5-8.0 g/dL Albumin Level 4.5 3.5-5.0 g/dL Alkaline Phosphatase 60 39-117 U/L Lipid Panel with Reflex Reviewed date:05/15/2024 05:09:42 PM Interpretation: Performing Lab:[address] [phone] Notes/Report: Triglycerides 188 <150 mg/dL Slight Lipemia. [...] in patients with liver disease. REASON FOR REFERRAL No Information MEDICATIONS Medication SIG (Take, Route, Frequency, Duration) Notes Start Date End Date Status Acetaminophen 500 MG 0.5 tablet as neede d Orally every 6 hrs Active Metrogel 1 % 1 application Externally Once a day for 30 days 11/22/2023 Active Cetirizine HCl 10 MG 1 tablet Orally Onc e a day for 30 day(s) Active Ocuflox 0.3 % 1 drop into affected eye Ophthalmic Four times a day for 7 days 12/11/2020 Not-Takin g Xanax 0.25 MG 1 tablet Orally Twic e a day Not-Taking Ocuflox 0.3 % as directed Ophthalm ic 4 times per day for 7 days 07/19/2022 Not-Taking CeleBREX 200 MG 1 capsule with food Orally Once a day for 90 days 07/22/2022 Not-Taking Elvepgckae-YQGT-Mghvrtpr 50-325-40 mg TAKE 1 TABLET EVERY 6 HOURS NEEDED Active Propranolol HCl ER 60 mg TAKE 1 CAPSULE DAILY Active Atorvastatin Calcium 10 mg TAKE 1 TABLET DAILY Active IMMUNIZATIONS Vaccine Route Administration Date Status Comme nts Fluarix Quadrivalent IM Intramuscular 04/03/2019 Administe red Prevnar 13 IM Intramuscular 06/19/2019 Administered SARS-COV-2 Pfizer Unknown 07/12/2020 Administered SARS-COV-2 Pfizer Unknown 08/02/2020 Administered SARS-COV-2 Pfizer Unknown 03/03/2021 Administered Fluarix Quadrivalent Unknown 03/29/2022 Administered SARS-COV-2 Pfizer Unknown 03/03/2021 Administered SARS-COV-2 Pfizer Unknown 09/24/2021 Administered SARS-COV-2 Pfizer Unknown 03/29/2022 Administered Fluarix Quadrivalent Unknown 11/20/2018 Refused PPSV23 (Pnemovax) Unknown 11/20/2018 Refused PPSV23 (Pnemovax) Unknown 11/19/2021 Refused SOCIAL HISTORY Tobacco Use: Social History Observation Description Date Details (start date - stop date) Never Smoker NA - NA Sex Assigned At : Social History Observation Description Sex Assigned At Unknown Tobacco Use/Smoking Question Answer Notes Patient is a nonsmoker Additional Findings: Tobacco Non-User Cu rrent non-smoker, currently using no form of tobacco Alcohol Screen Question Answer Notes Did you have a drink containing alcohol in the p ast year? No Points 0 Interpretation Negative PROBLEMS Problem Type ICD Code Onset Dates Problem Status W/U Status Risk SNOMED Code Notes Problem Hypercholesteremia (E78.00) Active confirmed 12964669 Problem Migraine without aur a and without status migrainosus, not intractable (G43.009) Active confirmed 052689603 Problem Anxiety (F41.9) Active confirmed 406025 02 Problem Other specified menopausal and perimenopausal disorders (N95.8) Active confirmed 692199127 Problem Bilateral carpal tunnel syndrome (G56.03) Active confirmed 22171326 Problem Cervical disc diseas e (M50.90) Active confirmed 713381112 Problem Rosacea (L71.9) Active confirmed 463102 004 VITAL SIGNS Blood pressure diastolic 82 mm Hg 04/23/2024 Height 60 in 04/23/2024 Blood pressure systolic 118 mm Hg 04/23/2024 Weight 123 lbs 04/23/2024 BMI 24.02 kg/m2 04/23/2024 Encounters Encounter Location Date Provider Diagnosis Rudy Proctor MD [address] [place] [address] [address] [place] [id number] 11/22/2023 Rudy Proctor Rosacea L71.9 ; Hypercholesteremia E78.00 ; Migraine without aura and without status migrainosus, not intractable G43.009 ; Colon cancer screening Z12.11 and Depression screening Z13.31 Rudy Proctor MD [address] [place] [address] Drive [address] [place] [id number] 04/03/2024 Rudy Proctor Open bite of right h and, initial encounter S61.451A and Bitten by dog, initial encounter W54.0XXA Rudy Proctor MD [address] [place] [address] Drive [address] [place] [id number] 05/17/2023 Rudy Proctor Hypercholesteremia E 78.00 Rudy Proctor MD [address] [place] [id number] 11/15/2023 Rudy Proctor Hypercholesteremia E 78.00 Rudy Proctor MD [address] [place] [address] Drive [address] [place] [id number] 05/15/2024 Rudy Proctor Hypercholesteremia E 78.00 Rudy Proctor MD [address] [place] [id number] 04/03/2024 Rudy Proctor Urinary tract infect ion without hematuria, site unspecified N39.0 Rudy Proctor MD [address] [place] [id number] 05/24/2023 Rudy Proctor Migraine without aur a and without status migrainosus, not intractable G43.009 and Hypercholesteremia E78.00 Rudy Proctor MD [address] [place] [id number] 03/13/2024 Rudy Proctor UTI (urinary tract infection) N39.0 Rudy Proctor MD [address] [place] [id number] 04/23/2024 Rudy Proctor Right Achilles tendi nitis M76.61 ASSESSMENTS Encounter Date Diagnosis Assessment Notes Treatment Notes Treatment Clinical Notes 11/22/2023 Rosacea (ICD-10 - L71.9) patient verbalized understanding of medication and directions for use 11/22/2023 Hypercholesteremia (ICD-10 - E78.00) stable, will continue current regiment 04/03/2024 Open bite of right hand, initial encounter (ICD-10 - S61.451A) to get tetanus shot at the pharmacy, patient verbalized undrstanding of medicationand directions for use 04/03/2024 Bitten by dog, initi al encounter (ICD-10 - W54.0XXA) 05/17/2023 Hypercholesteremia (ICD-10 - E78.00) 11/15/2023 Hypercholesteremia (ICD-10 - E78.00) 05/15/2024 Hypercholesteremia (ICD-10 - E78.00) 04/03/2024 Urinary tract infect ion without hematuria, site unspecified (ICD-10 - N39.0) 05/24/2023 Migraine without aur a and without status migrainosus, not intractable (ICD-10 - G43.009) doing well, will contnue current regiment 05/24/2023 Hypercholesteremia (ICD-10 - E78.00) doing great on meds, will continue current regiment 03/13/2024 UTI (urinary tract infection) (ICD-10 - N39.0) patient verbalized understanding of medication and directions for use 04/23/2024 Right Achilles tendinitis (ICD-10 - M76.61) rest and ice and use support. 11/22/2023 Migraine without aur a and without status migrainosus, not intractable (ICD-10 - G43.009) stable, will continue current regiment 11/22/2023 Colon cancer screeni ng (ICD-10 - Z12.11) guaiac negative 11/22/2023 Depression screening (ICD-10 - Z13.31) negative screen PLAN OF TREATMENT Next Appt Details Provider Name:Rudy Chandler ier, 05/22/2024 09:15:00 AM, [address] [place] [address], [address], [phone], Provider Name:Rudy tater, 11/20/2024 07:30:00 AM, [address] [place] [address], [address], [phone], Provider Name:Rudy Chandler ier, 11/27/2024 10:30:00 AM, [address] [place] [address], [address], [phone], Insurance Providers Payer Name Payer Address Payer Phone Subscriber Number Group Number Insured Name Patient Relationship to Insured Coverage Start Date Coverage End Date [employer] [address] [place] [address] [id number] Latoya Vega Self - patient is the insured [employer] [address] [place] [phone] [id number] Latoya Vega Self - patient is the insured MEDICAL (GENERAL) HISTORY Medical History History ICD Code colonoscopy 2005 refuses further not able to tolerate higher dose statins citrizine is zyrtec advised to get shingrix 2022
--- OUTSIDE RECORDS SUMMARY | 2024-05-16 22:05 | XMS_ITS ---
Author Organization Rudy Proctor MD Address [address] [place], [place] [phone] Care Team Providers Care Furnishings Conservator Name Role Phone Rudy Proctor Primary Care Provider [phone] RESULTS Component Value Reference Range Notes UA ClnCatch+Micro w/rflx Cul t Reviewed date:04/03/2024 12:37:23 PM Interpretation: Performing Lab:[facility], [address] [place] [phone] Notes/Report: [id number] 0830 Urine, Clean Catch Color Urine Yellow Appearance Urine Clear PH 5.0 5.0-9.0 Glucose Urine UA Negative Negative mg/dL Urine Blood Negative Negative Specific [place] - Urine >= 1.030 1.005-1.025 Urine Protein Trace Neg-Trace mg/dL Urine Ketones Negative Negative mg/dL Nitrite Urine Negative Negative Leukocyte Esterase Urine Negative Negative RBC Urine 0-2 0-2 /HPF WBC Urine 0-5 0-5 /HPF Squamous Epithelial Cell Urine 3-5 0-2 /HPF Bacteria Urine None Seen None Seen Hyaline Casts Urine 0-2 0-2 /LPF REASON FOR VISIT U/A aftercare MEDICATIONS Medication SIG (Take, Route, Frequency, Duration) [...] 10 mg TAKE 1 TABLET DAILY Active Zwzzfcczfc-NBDB-Jckbqgcc 50-325-40 mg TAKE 1 TABLET EVERY 6 HOURS NEEDED Active Cetirizine HCl 10 MG 1 tablet Orally Onc e a day for 30 day(s) Active Acetaminophen 500 MG 0.5 tablet as neede d Orally every 6 hrs Active Encounters Encounter Location Date Provider Diagnosis Rudy Proctor MD [address] [place] [id number] 04/03/2024 Rudy Proctor Urinary tract infection without hematuria, site unspecified N39.0 ASSESSMENTS Encounter Date Diagnosis Assessment Notes Treatment Notes Treatment Clinical Notes 04/03/2024 Urinary tract infection without hematuria, site unspecified (ICD-10 - N39.0) PLAN OF TREATMENT Next Appt Details Provider Name:Rudy burkett, 05/22/2024 09:15:00 AM, [address] [place] [address], [address], [phone], Provider Name:Rudy burkett, 11/20/2024 07:30:00 AM, [address] [place] [address], [phone], Provider Name:Rudy burkett, 11/27/2024 10:30:00 AM, [address] [place] [address], [phone],
== END 2024-05-15 14:23 | disposition home or self-care (01) ==
LOC: HO.LNP 14:22
PROVIDERS: Visit Provider Internal Medicine
DX: E78.00 Pure hypercholesterolemia, unspecified (principal)
CPT/HCPCS: 80061; 80076

== ENCOUNTER 2024-11-13 10:24 | Outpatient (REF) | payer MEDICARE, OTHER, SELFPAY ==
[2024-11-13 10:26] LABS: MANUAL DIFF FLAG NO
[2024-11-13 10:43] LABS: Basophils Absolute Auto 0.1 X10*3/uL (0.0-0.2); Basophils Percent Auto 0.7 % (0-2); Eosinophils Absolute Auto 0.5 X10*3/uL (0.0-0.4); Eosinophils Percent Auto 6.7 % (0-4); Hematocrit 43.4 % (37.0-47.0); Hemoglobin 14.5 g/dl (12.0-16.0); Imm Gran Abs Auto 0.03 X10*3/uL (0.00-0.03); Imm Gran Pct Auto 0.4 % (0.0-0.4); Lymphocytes Absolute Auto 2.5 X10*3/uL (1.2-4.9); Lymphocytes Percent Auto 33.2 % (20-40); Mean Corpuscular HGB Conc 33.4 g/dl (31.0-35.0); Mean Corpuscular Hemoglobin 31.8 pg (27.0-33.0); Mean Corpuscular Volume 95.2 fL (80.0-98.0); Mean Platelet Volume 9.5 fL (9.4-12.3); Monocytes Absolute Auto 0.7 X10*3/uL (0.1-1.2); Monocytes Percent Auto 9.2 % (2-11); Neutrophils Absolute Auto 3.7 x10*3/uL (2.0-8.3); Neutrophils Percent Auto 49.8 % (45-73); Platelet Count 258 X10*3/uL (160-400); Red Blood Count 4.56 X10*6/uL (4.20-5.50); Red Cell Distribution Width 12.7 % (11.0-16.0); White Blood Count 7.5 X10*3/uL (4.8-10.8)
[2024-11-13 10:58] LABS: Appearance Urine Clear; Color Urine Yellow; Glucose Urine UA Negative (Negative); Leukocyte Esterase Urine Trace (Negative); Nitrite Urine Negative (Negative); Specific Gravity - Urine 1.025 (1.005-1.025); UMIC TRIGGER UACC YES; Urine Blood Negative (Negative); Urine Ketones Negative (Negative); Urine Protein Negative (Neg-Trace)
[2024-11-13 11:03] LABS: Bacteria Urine None Seen (None Seen); Hyaline Casts Urine 0-2 /LPF (0-2); RBC Urine 0-2 /HPF (0-2); Squamous Epithelial Cell Urine 0-2 /HPF (0-2); WBC Urine 0-5 /HPF (0-5)
[2024-11-13 11:04] LABS: Alanine Aminotransferase 30 U/L (0-31); Albumin Level 4.9 g/dL (3.5-5.0); Alkaline Phosphatase 52 U/L (39-117); Anion Gap 12 (12-20); Aspartate Amino Transferase 30 U/L (5-31); Bilirubin Total 0.4 mg/dL (0.0-1.0); Blood Urea Nitrogen 16 mg/dL (9-16); Calcium 9.7 mg/dL (8.4-10.2); Carbon Dioxide 26 mmol/L (22-29); Chloride 106 mmol/L (96-108); Cholesterol 192 mg/dL (<200); Estimated Glomerular Filt Rate > 60; Glucose Fasting 111 mg/dL (60-99); HDL Cholesterol 55 mg/dL (>40); LDL Cholesterol Calculated 106 mg/dL (<100); Potassium 4.2 mmol/L (3.3-5.1); Sodium 140 mmol/L (135-145); Total Protein 7.2 g/dL (6.5-8.0); Triglycerides 156 mg/dL (<150)
--- OUTSIDE RECORDS SUMMARY | 2024-11-13 12:03 | XMS_ITS | Patient Health Record ---
Author Organization [employer] [facility] Address [address] [facility] [address] Care Team Providers Care Loss Prevention Consultant Name Role Phone Mak Skinner Unavailable [phone] Allergies No Known Allergies Reason For Referral No Information Medications Medication SIG (Take, Route, Frequency, Duration) Notes Start Date End Date Status Propranolol HCl ER 60 MG 1 capsule Orall y Once a day Active Lipitor 10 MG 1 tablet Orally Once a day Active ZyrTEC Allergy 10 MG 1 tablet Orally Onc e a day Active Amoxicillin 500 MG 1 tablet Orally Thre e times a day for 7 days 10/30/2021 Active Cwimryeh-Fhxogdmlx-EI 3.5-47178-6 4 drops into affected ear Otic Three times a day for 7 days 10/30/2021 Active Immunizations Vaccine Route Administration Date Status Comme nts COVID-19 Vaccine, Pfizer Unknown 07/12/2020 Administere d COVID-19 Vaccine, Pfizer Unknown 08/02/2020 Administere d COVID-19 Vaccine, Pfizer Unknown 03/03/2021 Administere d COVID-19 Vaccine, Pfizer 12+ Unknown 09/24/2021 Adminis tered Plan Of Treatment No Information Insurance Providers Payer Name Payer Address Payer Phone Subscriber Number Group Number Insured Name Patient Relationship to Insured Coverage Start Date Coverage End Date MEDICARE B [address] [place] [address] [id number] EKTA KAUFMAN Self - patient is the insured 8 Medical (General) History Medical History History ICD Code hyperlipidemia
== END 2024-11-13 10:25 | disposition home or self-care (01) ==
LOC: HO.LNP 10:24
PROVIDERS: Visit Provider Internal Medicine
DX: E78.00 Pure hypercholesterolemia, unspecified (principal)
CPT/HCPCS: 80053; 80061; 81001; 85025

== ENCOUNTER 2024-11-19 13:30 | Outpatient (REF) | payer MEDICARE, OTHER, SELFPAY ==
--- OUTSIDE RECORDS SUMMARY | 2024-11-19 14:59 | XMS_ITS | Patient Health Record ---
Author Organization [facility] Address [address] [place] [address] Care Team Providers Care Mathematician Research Name Role Phone Mak Skinner Unavailable [phone] Allergies No Known Allergies Reason For Referral [...] a day for 7 days 10/30/2021 Active Pahdjyjo-Outdejpru-VU 3.5-11919-0 4 drops into affected ear Otic Three [...] End Date MEDICARE B [address] [employer] [place] [address] [id number] EKTA KAUFMAN Self - patient is the insured 8 Medical (General) History Medical History History ICD Code hyperlipidemia
[2024-11-20 07:02] LABS: Rubeola IgG (Measles) >300.00 AU/mL
== END 2024-11-19 13:31 | disposition home or self-care (01) ==
LOC: HO.LNP 13:30
PROVIDERS: Visit Provider Internal Medicine
DX: M76.61 Achilles tendinitis, right leg (principal)
CPT/HCPCS: 86765

== ENCOUNTER 2025-04-09 08:29 | Outpatient (REF) | payer MEDICARE, OTHER, SELFPAY ==
--- OUTSIDE RECORDS SUMMARY | 2024-04-03 03:30 | XMS_ITS ---
Author Organization Rudy Proctor MD Address [address] [place], [place] [id number] Care Team Providers Care Loading Unit Operator Name Role Phone Rudy Proctor Primary Care Provider Results Component Value Reference Range Notes UA ClnCatch+Micro w/rflx Cul t Reviewed date:04/03/2024 12:37:23 PM Interpretation: Performing Lab:[facility], [address] [place] [phone] Notes/Report: [id number] Urine, Clean Catch Color Urine Yellow Appearance Urine Clear PH 5.0 5.0-9.0 Glucose Urine UA Negative Negative mg/dL Urine Blood Negative Negative Specific [place] - Urine >= 1.030 1.005-1.025 Urine Protein Trace Neg-Trace mg/dL Urine Ketones Negative Negative mg/dL Nitrite Urine Negative Negative Leukocyte Esterase Urine Negative Negative RBC Urine 0-2 0-2 /HPF WBC Urine 0-5 0-5 /HPF Squamous Epithelial Cell Urine 3-5 0-2 /HPF Bacteria Urine None Seen None Seen Hyaline Casts Urine 0-2 0-2 /LPF REASON FOR VISIT U/A aftercare Medications Medication SIG (Take, Route, Frequency, Duration) Notes Start Date End Date Status Ocuflox 0.3 % 1 drop into affected eye Ophthalmic Four times a day for 7 days 12/11/2020 Not-Takin g Xanax 0.25 MG 1 tablet Orally Twic e a day Not-Taking Ocuflox 0.3 % as directed Ophthalm ic 4 times per day for 7 days 07/19/2022 Not-Taking CeleBREX 200 MG 1 capsule with food Orally Once a day for 90 days 07/22/2022 Not-Taking Amoxicillin-Pot Clavulanate 875-125 MG 1 tablet Orally every 12 hrs for 3 day(s) 04/03/2024 Active Metrogel 1 % 1 application Externally Once a day for 30 days 11/22/2023 Active Propranolol HCl ER 60 mg TAKE 1 CAPSULE DAILY Active Cephalexin 500 MG 1 capsule Orally twi ce a day for 7 days 03/13/2024 Active Atorvastatin Calcium 10 mg TAKE 1 TABLET DAILY Active Pjyezirnto-FCXT-Wanmhpol 50-325-40 mg TAKE 1 TABLET EVERY 6 HOURS NEEDED Active Cetirizine HCl 10 MG 1 tablet Orally Onc e a day for 30 day(s) Active Acetaminophen 500 MG 0.5 tablet as neede d Orally every 6 hrs Active Encounters Encounter Location Date Provider Diagnosis Rudy Proctor MD [address] [place] [phone] 04/03/2024 Rudy Proctor Urinary tract infection without hematuria, site unspecified N39.0 Assessments Encounter Date Diagnosis (ICD Code) Assessment Notes Treatment Notes Treatment Clinical Notes Section Notes 04/03/2024 Urinary tract infection without hematuria, site unspecified (ICD-10 - N39.0) Plan Of Treatment Next Appt Details Provider Name:Rudy burkett, 05/14/2025 07:30:00 AM, [address] [place] [address], [phone], Provider Name:Rudy burkett, 05/21/2025 09:00:00 AM, [address] [place] [address], [phone], Provider Name:Rudy burkett, 11/08/2025 07:15:00 AM, [address] [place] [address], [phone], Provider Name:Rudy burkett, 11/15/2025 11:00:00 AM, [address] [place] [address], [phone], Progress Notes * Latoya KAUFMAN ADOB:[birth year] (84 yo F)Acc No.[id number]:04/03/2024 Progress Note Patient: Latoya THIBODEAUX Provider: Ella Proctor MD :1940 A ge:83 Y S ex:Female Date:04/03/2024 Address:[address] [place] [address] Subjective: * Chief Complaints: * 1 . U/A aftercare. * Medical History: * Medications: T aking Cetirizine HCl 10 MG Tablet 1 tablet Orally Once a day , Taking Acetaminophen 500 MG Tablet 0.5 tablet as needed Orally every 6 hrs , Taking Metrogel 1 % Gel 1 application Externally Once a day , Taking Atorvastatin Calcium 10 mg Tablet TAKE 1 TABLET DAILY , Taking Mrkmkyklvk-POYV-Woqghoat 50-325-40 mg Tablet TAKE 1 TABLET EVERY 6 HOURS NEEDED , Taking Propranolol HCl ER 60 mg Capsule Extended Release 24 Hour TAKE 1 CAPSULE DAILY , Taking Cephalexin 500 MG Capsule 1 capsule Orally twice a day , Taking Amoxicillin-Pot Clavulanate 875-125 MG Tablet 1 tablet Orally every 12 hrs , Not-Taking/PRN Ocuflox 0.3 % Solution as directed Ophthalmic 4 times per day , Not-Taking/PRN CeleBREX 200 MG Capsule 1 capsule with food Orally Once a day , Not-Taking/PRN Ocuflox 0.3 % Solution 1 drop into affected eye Ophthalmic Four times a day , Not-Taking/PRN Xanax 0.25 MG Tablet 1 tablet Orally Twice a day Objective: * Vitals: Assessment: * Assessment: 1. U rinary tract infection without hematuria, site unspecified - N39.0 Plan: * Treatment: * * The named appointment provid er may or may not be the originator of this progress note, and it is not deemed complete until electronically signed by the appointment provider. Sign off status: Pending * Provider: Ella Proctor MD Date: Generated for Bernardo douglas/Natali/Whit on: 06/09/2024 08:54 AM EST
--- OUTSIDE RECORDS SUMMARY | 2024-04-23 06:45 | XMS_ITS ---
Author Organization Rudy Proctor MD Address [address] [place], [place] [phone] Care Team Providers Care Die Attaching Machine Tender Name Role Phone Rudy Proctor Primary Care Provider [phone] Allergies Allergen (clinical drug ingredient) Drug/Non Drug Allergy documented on EMR Reaction Allergy Type Onset Date Status Latex Latex (uncoded) rash Allergy Acti ve REASON FOR VISIT r achilles, after visiting [place] Medications Medication SIG (Take, Route, Frequency, Duration) Notes Start Date End Date Status Acetaminophen 500 MG 0.5 tablet as neede d Orally every 6 hrs Active Metrogel 1 % 1 application Externally Once a day for 30 days 11/22/2023 Active Cetirizine HCl 10 MG 1 tablet Orally Onc e a day for 30 day(s) Active Xanax 0.25 MG 1 tablet Orally Twic e a day Not-Taking Atorvastatin Calcium 10 mg TAKE 1 TABLET DAILY Active Ocuflox 0.3 % 1 drop into affected eye Ophthalmic Four times a day for 7 days 12/11/2020 Not-Takin g Ocuflox 0.3 % as directed Ophthalm ic 4 times per day for 7 days 07/19/2022 Not-Taking CeleBREX 200 MG 1 capsule with food Orally Once a day for 90 days 07/22/2022 Not-Taking Nzbgqyuojl-MJTE-Mrofqcdr 50-325-40 mg TAKE 1 TABLET EVERY 6 HOURS NEEDED Active Propranolol HCl ER 60 mg TAKE 1 CAPSULE DAILY Active Vital Signs Blood pressure systolic 118 mm Hg 04/23/20 24 Blood pressure diastolic 82 mm Hg 024 Height 60 in 04/23/2024 Weight 123 lbs 04/23/2024 BMI 24.02 kg/m2 04/23/2024 Encounters Encounter Location Date Provider Diagnosis Rudy Proctor MD [address] [place] [address] [place] [phone] 04/23/2024 Rudy Proctor Right Achilles tendinitis M76.61 Assessments Encounter Date Diagnosis (ICD Code) Assessment Notes Treatment Notes Treatment Clinical Notes Section Notes 04/23/2024 Right Achilles tendinitis (ICD-10 - M76.61) rest and ice and use support. Plan Of Treatment Treatment Notes Assessment Notes Right Achilles tendinitis rest and ice a nd use support. Next Appt Details Provider Name:Rudy Chandler ier, 05/14/2025 07:30:00 AM, [address] [place] [address], [address] [place] [address], [phone], Provider Name:Rudy burkett, 05/21/2025 09:00:00 AM, [address] [place] [address], [address] [place] [address], [phone], Provider Name:Rudy Chandler ier, 11/08/2025 07:15:00 AM, [address] [place] [address], [address] [place] [address], [phone], Provider Name:Rudy tater, 11/15/2025 11:00:00 AM, [address] [place] [address], [address] [place] [address], [phone], Progress Notes * Latoya KAUFMAN ADOB:[birth year] (83 yo F)Acc No.[id number]:04/23/2024 Progress Notes Patient: Latoya Egan A Provider: Ella Proctor MD :1940 A ge:83 Y S ex:Female Date:04/23/2024 Address:[address] [place] [address] Adrien ortegaley [id number] Subjective: * Chief Complaints: * [facility] * HPI: S ymptom(s): patient is a 83 yo female her qith complaint of right achilles pain, was walking in [place] for 2 weeks and then 10 days later her achilles is tender. has a brace for it. is throbbing at times and is icing 2 or 3 times per day. * ROS: G eneral/Constitutional: Denies [place]. Marty ensandy F atigue. Marty ensandy F ever. Marty ensandy H eadache. E NT: Patient denies d ecreased sense of smell , any loss of taste , sore throat. D enies S ore throat. R espiratory: Denies [place]. Marty ensandy S hortness of breath at rest. D ensandy S hortness of breath with exertion. G astrointestinal: Denies Marty iarrhea. Marty santacruz N ausea. M usculoskeletal: Patient denies m uscle aches. P eripheral Vascular: Patient denies r ed and blue toes. * Medical History: * Surgical History: * Hospitalization/Major Diagno stic Procedure: * Medications: T akingCetirizine HCl 10 MG Tablet 1 tablet Orally Once a dayAcetaminophen 500 MG Tablet 0.5 tablet as needed Orally every 6 hrsMetrogel 1 % Gel 1 application Externally Once a dayAtorvastatin Calcium 10 mg Tablet TAKE 1 TABLET DAILY Bwinvycwdx-XRYS-Kbjkqtsb 50-325-40 mg Tablet TAKE 1 TABLET EVERY 6 HOURS NEEDED Propranolol HCl ER 60 mg Capsule Extended Release 24 Hour TAKE 1 CAPSULE DAILY Taking Cetirizine HCl 10 MG Tablet 1 tablet Orally Once a dayTaking Acetaminophen 500 MG Tablet 0.5 tablet as needed Orally every 6 hrsTaking Metrogel 1 % Gel 1 application Externally Once a dayTaking Atorvastatin Calcium 10 mg Tablet TAKE 1 TABLET DAILY Taking Kckdkhgnzl-UMTW-Dwxxzdie 50-325-40 mg Tablet TAKE 1 TABLET EVERY 6 HOURS NEEDED Taking Propranolol HCl ER 60 mg Capsule Extended Release 24 Hour TAKE 1 CAPSULE DAILY Not-Taking/PRNOcuflox 0.3 % Solution as directed Ophthalmic 4 times per dayCeleBREX 200 MG Capsule 1 capsule with food Orally Once a dayOcuflox 0.3 % Solution 1 drop into affected eye Ophthalmic Four times a dayXanax 0.25 MG Tablet 1 tablet Orally Twice a dayMedication List reviewed and reconciled with the patientNot-Taking/PRN Ocuflox 0.3 % Solution as directed Ophthalmic 4 times per dayNot-Taking/PRN CeleBREX 200 MG Capsule 1 capsule with food Orally Once a dayNot-Taking/PRN Ocuflox 0.3 % Solution 1 drop into affected eye Ophthalmic Four times a dayNot-Taking/PRN Xanax 0.25 MG Tablet 1 tablet Orally Twice a dayMedication List reviewed and reconciled with the patient * Allergies: L atex: rashyes[Allergies Verified] Objective: * Vitals: H t: 60, Wt:123, BMI:24.02, BP:118/82. * Examination: G eneral Examination: GENERAL APPEARANCE: a lert, well hydrated, in no distress.? EXTREMITIES: a bnormal with mild swelling on the middle of her achilles with mild tenderness. Assessment: * Assessment: [facility]. [facility] - M76.61 (Primary) Plan: * Treatment: * Procedure Codes: * * Sign off status: Completed true * Provider: Ella Proctor MD Date: 06/23/2023 Generated for Bernardo douglas/Natali/Sneharansmitting on: 06/09/2024 08:53 AM EST History and Physical Notes * HPI (History of Present Illness) Category Sub-Category Detail Notes Category Not es Symptom(s) patient is a 83 yo female her qith complaint of right achilles pain, was walking in [place] for 2 weeks and then 10 days later her achilles is tender. has a brace for it. is throbbing at times and is icing 2 or 3 times per day Examination Category Sub-Category Detail Notes Category Not es General Examination GENERAL APPEARANCE: alert, w ell hydrated, in no distress EXTREMITIES: abnormal with mild s welling on the middle of her achilles with mild tenderness
--- OUTSIDE RECORDS SUMMARY | 2024-05-15 02:00 | XMS_ITS ---
Author Organization Rudy Proctor MD Address [address] [place], [place] [phone] Care Team Providers Care Oil Well Shooter Name Role Phone Rudy Proctor Primary Care Provider [phone] Results Component Value Reference Range Notes Liver Panel Reviewed date:05/15/2024 05:09:51 PM Interpretation: Performing Lab:[facility], [address] [place] [phone] Notes/Report: Bilirubin Total 0.4 0.0-1.0 mg/dL Bilirubin Direct 0.1 0.0-0.5 mg/dL Aspartate Amino Transferase 34 5-31 U/L Slight Hemolysis.Interpret result with caution. Alanine Aminotransferase 32 0-31 U/L Total Protein 7.7 6.5-8.0 g/dL Albumin Level 4.5 3.5-5.0 g/dL Alkaline Phosphatase 60 39-117 U/L Lipid Panel with Reflex Reviewed date:05/15/2024 05:09:42 PM Interpretation: Performing Lab:[facility], [address] [place] [phone] Notes/Report: Triglycerides 188 <150 mg/dL Slight Lipemia. Desirable Triglyceride: less than 150 mg/dL Borderline High Triglyceride 150-199 mg/dL High Triglyceride: 200-499 mg/dL Very High Triglyceride: greater than or equal to 5OO mg/dL Cholesterol 209 <200 mg/dL Desirable Cholesterol: less than 200 mg/dL Borderline High Cholesterol: 200-239 mg/dL High Cholesterol: greater than 239 mg/dL LDL Cholesterol Calculated 115 <100 mg/dL Desirable LDL: less than 100 mg/dL Near Optimal/Above Optimal LDL: 110-129 mg/dL Borderline High LDL: 130-159 mg/dL High LDL: 160-189 mg/dL Very High LDL: greater than or equal to 190 mg/dL HDL Cholesterol 57 >40 mg/dL Desirable HDL: greater than 40 mg/dL Note: This HDL assay may give artificially low results in patients with liver disease. REASON FOR VISIT fasting lipids Encounters Encounter Location Date Provider Diagnosis Rudy Proctor MD [address] [place] [address] [place] [phone] 05/15/2024 Rudy Proctor Hypercholesteremia E 78.00 Assessments Encounter Date Diagnosis (ICD Code) Assessment Notes Treatment Notes Treatment Clinical Notes Section Notes 05/15/2024 Hypercholesteremia (ICD-10 - E78.00) Plan Of Treatment Next Appt Details Provider Name:Rudy burkett, 05/14/2025 07:30:00 AM, [address] [place] [address], [address], [phone], Provider Name:Rudy burkett, 05/21/2025 09:00:00 AM, [address] [place] [address], [address], [phone], Provider Name:Rudy burkett, 11/08/2025 07:15:00 AM, [address] [place] [address], [address], [phone], Provider Name:Rudy burkett, 11/15/2025 11:00:00 AM, [address] [place] [address], [address], [phone], Progress Notes * Latoya KAUFMAN ADOB:[birth year] (84 yo F)Acc No.[id number]:05/15/2024 Progress Note Patient: Latoya THIBODEAUX Provider: Ella Proctor MD :1940 A ge:83 Y S ex:Female Date:05/15/2024 Address:[address] [place], [place] [phone] Subjective: * Chief Complaints: * 1 . Fasting lipids. * Medical History: Objective: * Vitals: Assessment: * Assessment: 1. H ypercholesteremia - E78.00 (Primary) Plan: * Treatment: * Procedure Codes: 3 6415 VENIPUNCT, ROUTINE* * * The named appointment provid er may or may not be the originator of this progress note, and it is not deemed complete until electronically signed by the appointment provider. Sign off status: Pending * Provider: Ella Proctor MD Date: 07/16/2023 Generated for Bernardo douglas/Natali/Magueitting on: 06/09/2024 08:53 AM EST
--- OUTSIDE RECORDS SUMMARY | 2024-05-22 04:15 | XMS_ITS ---
Author Organization Rudy Proctor MD Address [address] [place], [place] [id number] Care Team Providers Care Body And Fender Worker Name Role Phone Rudy Proctor Primary Care Provider [phone] Allergies Allergen (clinical drug ingredient) Drug/Non Drug Allergy documented on EMR Reaction Allergy Type Onset Date Status Latex Latex (uncoded) rash Allergy Acti ve REASON FOR VISIT 6 month Medications Medication SIG (Take, Route, Frequency, Duration) Notes Start Date End Date Status Ocuflox 0.3 % as directed Ophthalm ic 4 times per day for 7 days 07/19/2022 Not-Taking CeleBREX 200 MG 1 capsule with food Orally Once a day for 90 days 07/22/2022 Not-Taking Propranolol HCl ER 60 mg TAKE 1 CAPSULE DAILY Active Ocuflox 0.3 % 1 drop into affected eye Ophthalmic Four times a day for 7 days 12/11/2020 Not-Takin g Xanax 0.25 MG 1 tablet Orally Twic e a day Not-Taking Oxvsttyzho-KKHJ-Iylyhrbx 50-325-40 mg TAKE 1 TABLET EVERY 6 HOURS NEEDED Active Atorvastatin Calcium 10 mg TAKE 1 TABLET DAILY Active Metrogel 1 % 1 application Externally Once a day for 30 days 11/22/2023 Active Cetirizine HCl 10 MG 1 tablet Orally Onc e a day for 30 day(s) Active Acetaminophen 500 MG 0.5 tablet as neede d Orally every 6 hrs Active Vital Signs Blood pressure systolic 124 mm Hg 05/22/20 24 Blood pressure diastolic 82 mm Hg 024 Height 60 in 05/22/2024 Weight 121 lbs 05/22/2024 BMI 23.63 kg/m2 05/22/2024 weight is down 2 pounds sin e 04-23-24 Encounters Encounter Location Date Provider Diagnosis Rudy Proctor MD [address] [place] [address] [place] [phone] 05/22/2024 Rudy Proctor Hypercholesteremia E 78.00 and Achilles tendinitis of right lower extremity M76.61 Assessments Encounter Date Diagnosis (ICD Code) Assessment Notes Treatment Notes Treatment Clinical Notes Section Notes 05/22/2024 Hypercholesteremia (ICD-10 - E78.00) doing fairly well but exercise has decreased. lfts a little high, advised on diet and exercise, will continue current regiment as well 05/22/2024 Achilles tendinitis of right lower extremity (ICD-10 - M76.61) is getting better. will continue with present Plan Of Treatment Medication Medication Name Sig Start Date Stop Date Notes Atorvastatin Calcium 10 mg TAKE 1 TABLET DAILY Treatment Notes Assessment Notes Hypercholesteremia doing fairly well bu t exercise has decreased. lfts a little high, advised on diet and exercise, will continue current regiment as well Achilles tendinitis of right lower extre mity is getting better. will continue with present Next Appt Details Follow Up: 6 Weeks, Reason: Provider Name:Rudy burkett, 05/14/2025 07:30:00 AM, [address] [place] [address], [address], [phone], Provider Name:Rudy burkett, 05/21/2025 09:00:00 AM, [address] [place] [address], [address], [phone], Provider Name:Rudy burkett, 11/08/2025 07:15:00 AM, [address] [place] [address], [address], [phone], Provider Name:Rudy burkett, 11/15/2025 11:00:00 AM, [address] [place] [address], [address], [phone], Progress Notes * Latoya KAUFMAN ADOB:[birth year] (83 yo F)Acc No.[id number]:05/22/2024 Progress Notes Patient: Latoya Egan Provider: Ella Proctor MD :1940 A ge:83 Y S ex:Female Date:05/22/2024 Address:[address] [place], [place] [phone] Subjective: * Chief Complaints: * 6 month * HPI: S ymptom(s): patient is a 83 yo female here for 6 month follow up visit, tendonitis is still there. walking with heel lift helped tendonitis. walked 3 miles and is throbbing into the night. * ROS: G eneral/Constitutional: Denies C hills. D enies F atigue. D enies F ever. D enies H eadache. E NT: Patient denies d ecreased sense of smell , any loss of taste , sore throat. D enies S ore throat. R espiratory: Denies C ough. D enies S hortness of breath at rest. D enies S hortness of breath with exertion. G astrointestinal: Denies D iarrhea. D enies N ausea. M usculoskeletal: Patient denies m [...] 10 mg Tablet TAKE 1 TABLET DAILY Ayxtjklytd-YBJP-Hszqphpm 50-325-40 mg Tablet TAKE 1 TABLET EVERY [...] mg Tablet TAKE 1 TABLET DAILY Taking Lonjuyatmt-ZPPC-Jlxllwiz 50-325-40 mg Tablet TAKE 1 TABLET EVERY [...] Verified] Objective: * Vitals: H t: 60, Wt:121, BMI:23.63, BP:124/82 weight is down 2 pounds since 04-23-24. * P ast Orders: L ab:Liver Panel (Order Date - 05/15/2024) (Collection Date - 05/15/2024) Value Reference Range Bilirubin Total 0.4 0.0-1.0 - mg/dL Bilirubin Direct 0.1 0.0-0.5 - mg/dL Aspartate Amino Transferase 34 H 5-31 - U/L Alanine Aminotransferase 32 H 0-31 - U/L Total Protein 7.7 6.5-8.0 - g/dL Albumin Level 4.5 3.5-5.0 - g/dL Alkaline Phosphatase 60 39-117 - U/L L ab:Lipid Panel with Reflex (Order Date - 05/15/2024) (Collection Date - 05/15/2024) Value Reference Range Triglycerides 188 H <150 - mg/dL Cholesterol 209 H <200 - mg/dL LDL Cholesterol Calculated 115 H <100 - mg/dL HDL Cholesterol 57 >40 - mg/dL * Examination: G eneral Examination: GENERAL APPEARANCE: a lert, well hydrated, in no distress.? EARS: B OTH EARS , normal. HEART: n o murmurs, rubs, gallops , regular rate and rhythm. LUNGS: n o wheezes, rales, rhonchi , good air movement , clear to auscultation bilaterally. EXTREMITIES: a bnormal with minimal tenderness of the rt achilles. no swelling. Assessment: * Assessment: 1. H ypercholesteremia - E78.00 (Primary) 2 . A chilles tendinitis of right lower extremity - M76.61 Plan: * Treatment: 2. A chilles tendinitis of right lower extremity Notes: is getting better. will continue with present * Procedure Codes: * Follow Up: 6 Weeks * * Sign off status: Completed true * Provider: Ella Proctor MD Date: 07/23/2023 Generated for Bernardo douglas/Natali/Whit on: 06/09/2024 08:53 AM EST History and Physical Notes * HPI (History of Present Illness) Category Sub-Category Detail Notes Category Not es Symptom(s) patient is a 83 yo female here for 6 month follow up visit, tendonitis is still there. walking with heel lift helped tendonitis. walked 3 miles and is throbbing into the night. Examination Category Sub-Category Detail Notes Category Not es General Examination GENERAL APPEARANCE: alert, w ell hydrated, in no distress EARS: BOTH EARS , normal HEART: no murmurs, rubs, ga llops , regular rate and rhythm LUNGS: no wheezes, rales, r honchi , good air movement , clear to auscultation bilaterally EXTREMITIES: abnormal with minima l tenderness of the rt achilles. no swelling
--- OUTSIDE RECORDS SUMMARY | 2024-06-14 07:45 | XMS_ITS ---
Author Organization Rudy Proctor MD Address [address] [place], [place] [id number] Care Team Providers Care Mortgage Clerk Name Role Phone Rudy Proctor Primary Care Provider [phone] Allergies Allergen (clinical drug ingredient) Drug/Non Drug Allergy documented on EMR Reaction Allergy Type Onset Date Status Latex Latex (uncoded) rash Allergy Acti ve REASON FOR VISIT ear infection after covid still testing Positive, Video [phone] Medications Medication SIG (Take, Route, Frequency, Duration) Notes Start Date End Date Status Atorvastatin Calcium 10 mg TAKE 1 TABLET DAILY Active Xanax 0.25 MG 1 tablet Orally Twic e a day Not-Taking Ocuflox 0.3 % 1 drop into affected eye Ophthalmic Four times a day for 7 days 12/11/2020 Not-Takin g CeleBREX 200 MG 1 capsule with food Orally Once a day for 90 days 07/22/2022 Not-Taking Ocuflox 0.3 % as directed Ophthalm ic 4 times per day for 7 days 07/19/2022 Not-Taking Amoxicillin-Pot Clavulanate 875-125 MG 1 tablet Orally every 12 hrs for 7 days 06/14/2024 Active Metrogel 1 % 1 application Externally Once a day for 30 days 11/22/2023 Active Acetaminophen 500 MG 0.5 tablet as neede d Orally every 6 hrs Active Propranolol HCl ER 60 mg TAKE 1 CAPSULE DAILY Active Hyygimrwpf-XJPV-Yadoagpl 50-325-40 mg TAKE 1 TABLET EVERY 6 HOURS NEEDED Active Cetirizine HCl 10 MG 1 tablet Orally Onc e a day for 30 day(s) Active Vital Signs Temperature 97.9 degrees Fahrenheit 06/14/19 25 Height 60 in 06/14/2024 Weight 118 lbs 06/14/2024 BMI 23.04 kg/m2 06/14/2024 eight is 118 at home BP not taken no temp Encounters Encounter Location Date Provider Diagnosis Rudy Proctor MD [address] [place] [phone] 06/14/2024 Rudy Proctor Left non-suppurative otitis media H65.92 ; COVID U07.1 and COVID-19 U07.1 Assessments Encounter Date Diagnosis (ICD Code) Assessment Notes Treatment Notes Treatment Clinical Notes Section Notes 06/14/2024 Left non-suppurativ e otitis media (ICD-10 - H65.92) patient verbalized understandingof medication and directions for use 06/14/2024 COVID (ICD-10 - U07.1) 06/14/2024 COVID-19 (ICD-10 - U07.1) Plan Of Treatment Medication Medication Name Sig Start Date Stop Date Notes Amoxicillin-Pot Clavulanate 875-125 MG 1 tablet Orally every 12 hrs for 7 days 06/14/2024 Treatment Notes Assessment Notes Left non-suppurative otitis media patien t verbalized understandingof medication and directions for use Next Appt Details Provider Name:Rudy burkett, 05/14/2025 07:30:00 AM, [address] [place] [address], [phone], Provider Name:Rudy burkett, 05/21/2025 09:00:00 AM, [address] [place] [address], [phone], Provider Name:Rudy burkett, 11/08/2025 07:15:00 AM, [address] [place] [address], [phone], Provider Name:Rudy burkett, 11/15/2025 11:00:00 AM, [address] [place] [address], [phone], Progress Notes * Latoya KAUFMAN ADOB:[birth year] (83 yo F)Acc No.[id number]:06/14/2024 Patient: Latoya Egan Provider: Ella rPoctor MD :1940 A ge:83 Y S ex:Female Date:06/14/2024 Address:[address] [place], [place] [phone] Subjective: * Chief Complaints: * e ar infection after covid still testing PositiveVideo [phone] * HPI: S ymptom(s): Telehealth L ocation of provider rendering services: [address], [address], L ocation of patient: a t address listed in demographics for today's visit, P atient identification confirmed using: WILNER Caputo ame, SSN, Insurance information, T elehealth method: V ideo conference where patient is visible to the provider of care, C onsent: P atient verbally consented to treatment, Patient verbally consented to billing insurance company, Patient informed of any privacy concerns related to method of visit. patient is a 83yo female video telehealth visit, covid is better. tested and is still positive. ear feels like an infection starting. feels tight. no fever. covid started 2 days before new years. had covid symptoms for 5 days.did not take paxlovid. * ROS: G eneral/Constitutional: Denies C hills. D enies F atigue. D enies F ever. D enies H eadache. E NT: Patient denies d ecreased sense of smell , any loss of taste , sore throat. A dmits E ar pain, l eft ear pain. R espiratory: Denies C ough. D enies [...] % Gel 1 application Externally Once a tkdEgoztbdbkn-WZSH-Ygujmwdh 50-325-40 mg Tablet TAKE 1 TABLET EVERY 6 HOURS NEEDED Propranolol HCl ER 60 mg Capsule Extended Release 24 Hour TAKE 1 CAPSULE DAILY Atorvastatin Calcium 10 mg Tablet TAKE 1 TABLET DAILY Taking Cetirizine HCl 10 MG Tablet 1 tablet Orally Once a dayTaking Acetaminophen 500 MG Tablet 0.5 tablet as needed Orally every 6 hrsTaking Metrogel 1 % Gel 1 application Externally Once a dayTaking Qwiobzfrhu-DEMA-Qgjeernl 50-325-40 mg Tablet TAKE 1 TABLET EVERY 6 HOURS NEEDED Taking Propranolol HCl ER 60 mg Capsule Extended Release 24 Hour TAKE 1 CAPSULE DAILY Taking Atorvastatin Calcium 10 mg Tablet TAKE 1 TABLET DAILY Not-Taking/PRNOcuflox 0.3 % Solution as directed Ophthalmic 4 times per dayCeleBREX 200 MG Capsule 1 capsule with food Orally Once a dayOcuflox 0.3 % Solution 1 drop into affected eye Ophthalmic Four times a dayXanax 0.25 MG Tablet 1 tablet Orally Twice a dayMedication List reviewed and reconciled with the patientNot- Taking/PRN Ocuflox 0.3 % Solution as directed Ophthalmic 4 times per dayNot-Taking/PRN CeleBREX 200 MG Capsule 1 capsule with food Orally Once a dayNot-Taking/PRN Ocuflox 0.3 % Solution 1 drop into affected eye Ophthalmic Four times a dayNot-Taking/PRN Xanax 0.25 MG Tablet 1 tablet Orally Twice a dayMedication List reviewed and reconciled with the patient * Allergies: L atex: melisayerachell[Allergies Verified] Objective: * Vitals: H t: 60, Wt:118, BMI:23.04, Temp:97.9 eight is 118 at home BP not taken no temp. * Examination: G eneral Examination: GENERAL APPEARANCE: w ell developed, well nourished. ? Assessment: * Assessment: 1. L eft non-suppurative otitis media - H65.92 (Primary) 2 . C OVID - U07.1 3 .?COVID-19 - U07.1 Plan: * Treatment: * Procedure Codes: * * Sign off status: Completed true * Provider: Ella Proctor MD Date: 0 06/14/2024 Generated for Bernardo douglas/Natali/Whit on: 06/09/2024 08:54 AM EST History and Physical Notes * HPI (History of Present Illness) Category Sub-Category Detail Notes Category Not es Symptom(s) [facility] [address], [address] patient is a 83yo female video telehealth visit, covid is better. tested and is still positive. ear feels like an infection starting. feels tight. no fever. covid started 2 days before new years. had covid symptoms for 5 days.did not take paxlovid Location of patient:: at address listed in demographics for today's visit Patient identification confirmed using:: Name, , SSN, Insurance information Telehealth method:: Video co nference where patient is visible to the provider of care Consent:: Patient verbally c onsented to treatment, Patient verbally consented to billing insurance company, Patient informed of any privacy concerns related to method of visit Examination Category Sub-Category Detail Notes Category Not es General Examination GENERAL APPEARANCE: well developed , well nourished
--- OUTSIDE RECORDS SUMMARY | 2024-07-02 05:00 | XMS_ITS ---
Author Organization Rudy Proctor MD Address [address] [place], [place] [id number] Care Team Providers Care Clinical Transformation Specialist Name Role Phone Rudy Proctor Primary Care Provider [phone] Allergies Allergen (clinical drug ingredient) Drug/Non Drug Allergy documented on EMR Reaction Allergy Type Onset Date Status Latex Latex (uncoded) rash Allergy Acti ve REASON FOR VISIT 6 weeks Medications Medication SIG (Take, Route, Frequency, Duration) Notes Start Date End Date Status Xanax 0.25 MG 1 tablet Orally Twic e a day Not-Taking Ocuflox 0.3 % 1 drop into affected eye Ophthalmic Four times a day for 7 days 12/11/2020 Not-Takin g Propranolol HCl ER 60 mg TAKE 1 CAPSULE DAILY Active CeleBREX 200 MG 1 capsule with food [...] neede d Orally every 6 hrs Active Atorvastatin Calcium 10 mg TAKE 1 TABLET DAILY Active Gmfkliowgj-UVDS-Srqgtuoi 50-325-40 mg TAKE 1 TABLET EVERY 6 HOURS NEEDED Active Cetirizine HCl 10 MG 1 tablet Orally Onc e a day for 30 day(s) Active Vital Signs Blood pressure systolic 112 mm Hg 07/02/19 25 Blood pressure diastolic 70 mm Hg 025 Height 60 in 07/02/2024 Weight 122 lbs 07/02/2024 BMI 23.82 kg/m2 07/02/2024 weight is up 4 pounds since 06-14-24 Encounters Encounter Location Date Provider Diagnosis Rudy Proctor MD [address] [place] [address] [place] [phone] 07/02/2024 Rudy Proctor COVID-19 U07.1 and Achilles tendinitis, left leg M76.62 Assessments Encounter Date Diagnosis (ICD Code) Assessment Notes Treatment Notes Treatment Clinical Notes Section Notes 07/02/2024 COVID-19 (ICD-10 - U07.1) doing well has recovered 07/02/2024 Achilles tendinitis, left leg (ICD-10 - M76.62) is gradually getting better. will send to PT to see if it can get even better 07/02/2024 Other Phyical Therapy orders given to patient, she will set up her own appt. Plan Of Treatment Treatment Notes Assessment Notes COVID-19 doing well has recov ered Achilles tendinitis, left leg is gradual ly getting better. will send to PT to see if it can get even better Other Phyical Therapy orde rs given to patient, she will set up her own appt. Next Appt Details Provider Name:Rudy burkett, 05/14/2025 07:30:00 AM, [address] [place] [address], [address], [phone], Provider Name:Rudy burkett, 05/21/2025 09:00:00 AM, [address] [place] [address], [address], [phone], Provider Name:Rudy burkett, 11/08/2025 07:15:00 AM, [address] [place] [address], [address], [phone], Provider Name:Rudy burkett, 11/15/2025 11:00:00 AM, [address] [place] [address], [address], [phone], Progress Notes * aLtoya KAUFMAN ADOB:[birth year] (83 yo F)Acc No.[id number]:07/02/2024 Progress Notes Patient: Latoya THIBODEAUX Provider: Ella Proctor MD :1940 A ge:83 Y S ex:Female Date:07/02/2024 Address:[address] [place], [place] [phone] Subjective: * Chief Complaints: * 6 weeks * HPI: S ymptom(s): patient is a 83 yo female here for 6 week follow up of achiles. is doing gradually better. had covid new years. is doing better but still with occas wheeze. had er infection treated with amoxil. * ROS: G eneral/Constitutional: Denies C hills. D enies F atigue. D enies F ever. D enies H eadache. E NT: Patient denies d ecreased sense of smell, any loss of taste, sore throat. D enies S ore throat. [...] Tablet 1 tablet Orally Once a day Acetaminophen 500 MG Tablet 0.5 tablet as needed Orally every 6 hrs Metrogel 1 % Gel 1 application Externally Once a day Birvattgte-CMCX-Pxagczne 50-325-40 mg Tablet TAKE 1 TABLET EVERY 6 HOURS NEEDED Atorvastatin Calcium 10 mg Tablet TAKE 1 TABLET DAILY Amoxicillin-Pot Clavulanate 875-125 MG Tablet 1 tablet Orally every 12 hrs Propranolol HCl ER 60 mg Capsule Extended Release 24 Hour TAKE 1 CAPSULE DAILY Taking Cetirizine HCl 10 MG Tablet 1 tablet Orally Once a day Taking Acetaminophen 500 MG Tablet 0.5 tablet as needed Orally every 6 hrs Taking Metrogel 1 % Gel 1 application Externally Once a day Taking Perqpbiepd-JZPT-Maofmzjm 50-325-40 mg Tablet TAKE 1 TABLET EVERY 6 HOURS NEEDED Taking Atorvastatin Calcium 10 mg Tablet TAKE 1 TABLET DAILY Taking Amoxicillin-Pot Clavulanate 875-125 MG Tablet 1 tablet Orally every 12 hrs Taking Propranolol HCl ER 60 mg Capsule Extended Release 24 Hour TAKE 1 CAPSULE DAILY Not-Taking/PRNOcuflox 0.3 % Solution as directed Ophthalmic 4 times per day CeleBREX 200 MG Capsule 1 capsule with food Orally Once a day Ocuflox 0.3 % Solution 1 drop into affected eye Ophthalmic Four times a day Xanax 0.25 MG Tablet 1 tablet Orally Twice a day Medication List reviewed and reconciled with the patientNot-Taking/PRN Ocuflox 0.3 % Solution as directed Ophthalmic 4 times per day Not-Taking/PRN CeleBREX 200 MG Capsule 1 capsule with food Orally Once a day Not-Taking/PRN Ocuflox 0.3 % Solution 1 drop into affected eye Ophthalmic Four times a day Not-Taking/PRN Xanax 0.25 MG Tablet 1 tablet Orally Twice a day Medication List reviewed and reconciled with the patient * Allergies: L atex: rashyes[Allergies Verified] Objective: * Vitals: H t: 60, Wt: 122, BMI:23.82, BP:112/70, Wt-k.34. weight is up 4 pounds since 06-14-24. * Examination: G eneral Examination: GENERAL APPEARANCE: a lert, well hydrated, in no distress.? HEAD: n ormocephalic. EARS: B OTH EARS, normal, auditory canal clear, tympanic membrane intact, clear. SKIN: g ood turgor. HEART: n o murmurs, rubs, gallops, regular rate and rhythm.? LUNGS: c lear to auscultation bilaterally. EXTREMITIES: l eft achilles non tender. ? Assessment: * Assessment: 1. A chilles tendinitis, left leg - M76.62 (Primary) 2 . C OVID-19 - U07.1? Plan: * Treatment: 2. C OVID-19 Notes: doing well has recovered 3. O thers Notes: Phyical Therapy orders given to patient, she will set up her own appt. * Procedure Codes: * * Sign off status: Completed true * Provider: Ella Proctor MD Date: 0 07/02/2024 Generated for Bernardo douglas/Natali/Whit on: 06/09/2024 08:52 AM EST History and Physical Notes * Examination Category Sub-Category Detail Notes Category Not es General Examination GENERAL APPEARANCE: alert, w ell hydrated, in no distress HEAD: normocephalic EARS: BOTH EARS, normal, a uditory canal clear, tympanic membrane intact, clear HEART: no murmurs, rubs, ga llops, regular rate and rhythm LUNGS: clear to auscultatio n bilaterally SKIN: good turgor EXTREMITIES: left achilles non te nder
--- OUTSIDE RECORDS SUMMARY | 2024-11-13 02:30 | XMS_ITS ---
Author Organization Rudy Proctor MD Address [address] [place], [place] [id number] Care Team Providers Care Engineering Instructor Name Role Phone Rudy Proctor Primary Care Provider Results Component Value Reference Range Notes Complete Blood Count Auto Di ff Reviewed date:11/13/2024 12:15:38 PM Interpretation: Performing Lab:[facility], [address] [place] [id number] Notes/Report: White Blood Count 7.5 4.8-10.8 X10*3/uL Red Blood Count 4.56 4.20-5.50 X10*6/uL Hemoglobin 14.5 12.0-16.0 g/dl Hematocrit 43.4 37.0-47.0 % Mean Corpuscular Volume 95.2 80.0-98.0 fL Mean Corpuscular Hemoglobin 31.8 27.0-33.0 pg Mean Corpuscular HGB Conc 33.4 31.0-35.0 g/dl Red Cell Distribution Width 12.7 11.0-16.0 % Platelet Count 258 160-400 X10*3/uL Mean Platelet Volume 9.5 9.4-12.3 fL Neutrophils Percent Auto 49.8 45-73 % Imm Gran Pct Auto 0.4 0.0-0.4 % Lymphocytes Percent Auto 33.2 20-40 % Monocytes Percent Auto 9.2 2-11 % Eosinophils Percent Auto 6.7 0-4 % Basophils Percent Auto 0.7 0-2 % NRBC Pct Auto 0.0 0.0-0.2 /100WBC Neutrophils Absolute Auto 3.7 2.0-8.3 x10*3/u L Imm Gran Abs Auto 0.03 0.00-0.03 X10*3/uL Lymphocytes Absolute Auto 2.5 1.2-4.9 X10*3/u L Monocytes Absolute Auto 0.7 0.1-1.2 X10*3/uL Eosinophils Absolute Auto 0.5 0.0-0.4 X10*3/u L Basophils Absolute Auto 0.1 0.0-0.2 X10*3/uL NRBC Abs Auto 0.000 0.0-0.012 X10*3/uL Comprehensive [place]. Panel Fa st Reviewed date:11/13/2024 11:58:03 AM Interpretation: Performing Lab:[address] [phone] Notes/Report: Sodium 140 135-145 mmol/L Potassium 4.2 3.3-5.1 mmol/L Chloride 106 96-108 mmol/L Carbon Dioxide 26 22-29 mmol/L Anion Gap 12 12-20 Blood Urea Nitrogen 16 9-16 mg/dL Creatinine 0.79 0.5-1.4 mg/dL Estimated Glomerular Filt Rate > 60 Chronic Kidney Disease: Estimated GFR < 60 mL/min/1.73m2 Severe Kidney Disease: Estimated GFR < 15 mL/min/1.73m2 Glucose Fasting 111 60-99 mg/dL A fasting glucose from 100-125 mg/dl is considered impaired (pre-diabetes). Calcium 9.7 8.4-10.2 mg/dL Bilirubin Total 0.4 0.0-1.0 mg/dL Aspartate Amino Transferase 30 5-31 U/L Alanine Aminotransferase 30 0-31 U/L Total Protein 7.2 6.5-8.0 g/dL Albumin Level 4.9 3.5-5.0 g/dL Alkaline Phosphatase 52 39-117 U/L Lipid Panel Reviewed date:11/13/2024 11:45:35 AM Interpretation: Performing Lab:[address] [phone] Notes/Report: Triglycerides 156 <150 mg/dL Desirable Triglyceride: less than 150 mg/dL Borderline High Triglyceride 150-199 mg/dL High Triglyceride: 200-499 mg/dL Very High Triglyceride: greater than or equal to 5OO mg/dL Cholesterol 192 <200 mg/dL Desirable Cholesterol: less than 200 mg/dL Borderline High Cholesterol: 200-239 mg/dL High Cholesterol: greater than 239 mg/dL LDL Cholesterol Calculated 106 <100 mg/dL Desirable LDL: less than 100 mg/dL Near Optimal/Above Optimal LDL: 110-129 mg/dL Borderline High LDL: 130-159 mg/dL High LDL: 160-189 mg/dL Very High LDL: greater than or equal to 190 mg/dL HDL Cholesterol 55 >40 mg/dL Desirable HDL: greater than 40 mg/dL Note: This HDL assay may give artificially low results in patients with liver disease. UA ClnCatch+Micro w/rflx Cul t Reviewed date:11/13/2024 12:15:10 PM Interpretation: Performing Lab:[facility], [address] [place] [phone] Notes/Report: Urine, Clean Catch Color Urine Yellow Appearance Urine Clear PH 5.0 5.0-9.0 Glucose Urine UA Negative Negative mg/dL Urine Blood Negative Negative Specific [place] - Urine 1.025 1.005-1.025 Urine Protein Negative Neg-Trace mg/dL Urine Ketones Negative Negative mg/dL Nitrite Urine Negative Negative Leukocyte Esterase Urine Trace Negative RBC Urine 0-2 0-2 /HPF WBC Urine 0-5 0-5 /HPF Squamous Epithelial Cell Urine 0-2 0-2 /HPF Bacteria Urine None Seen None Seen Hyaline Casts Urine 0-2 0-2 /LPF REASON FOR VISIT yearly fasting labs Encounters Encounter Location Date Provider Diagnosis Rudy Proctor MD [address] [place] [address] [place] [phone] 11/13/2024 Rudy Proctor Hypercholesteremia E 78.00 Assessments Encounter Date Diagnosis (ICD Code) Assessment Notes Treatment Notes Treatment Clinical Notes Section Notes 11/13/2024 Hypercholesteremia (ICD-10 - E78.00) Plan Of Treatment Next Appt Details Provider Name:Rudy burkett, 05/14/2025 07:30:00 AM, [address] [place] [address], [place] [address], [place], [place], [phone], Provider Name:Rudy burkett, 05/21/2025 09:00:00 AM, [address], [address], [place], [place], [phone], Provider Name:Rudy Chandler ier, 11/08/2025 07:15:00 AM, [address], [address], [place], [place], [phone], Provider Name:Rudy Chandler ier, 11/15/2025 11:00:00 AM, [address] [facility], [address], [place], [phone], Progress Notes * Latoya KAUFMAN ADOB:[birth year] (84 yo F)Acc No.[id number]:11/13/2024 Progress Note Patient: Latoya THIBODEAUX Provider: Ella Proctor MD :[id number] A ge:83 Y S ex:Female Date:11/13/2024 Address:[address] [place], [place] [phone] Subjective: * Chief Complaints: * 1 . Yearly fasting labs. * Medical History: Objective: * Vitals: Assessment: [...] Pending * Provider: Ella Proctor MD Date: 0 11/13/2024 Generated for Bernardo douglas/Natali/eTbookersmitting on: 06/09/2024 08:52 AM EST
--- OUTSIDE RECORDS SUMMARY | 2024-11-19 04:30 | XMS_ITS ---
Author Organization Rudy Proctor MD Address [address] [place], [place] [id number] Care Team Providers Care Cnc Manufacturing Engineer Name Role Phone Rudy Proctor Primary Care Provider [phone] Allergies Allergen (clinical drug ingredient) Drug/Non Drug Allergy documented on EMR Reaction Allergy Type Onset Date Status Latex Latex (uncoded) rash Allergy Acti ve REASON FOR VISIT review labs Medications Medication SIG (Take, Route, Frequency, Duration) [...] 1 tablet Orally every 12 hrs for 10 days 11/19/2024 Active Propranolol HCl ER 60 mg TAKE 1 CAPSULE DAILY Active Amoxicillin-Pot Clavulanate 875-125 MG 1 tablet Orally every 12 hrs for 7 days 06/14/2024 Not-Taking Agdvksanwd-LJPQ-Attmrldt 50-325-40 mg TAKE 1 TABLET EVERY 6 HOURS NEEDED Active Ocuflox 0.3 % as directed Ophthalm ic 4 times per day for 7 days 07/19/2022 Not-Taking Acetaminophen 500 MG 0.5 tablet as neede d Orally every 6 hrs Active Cetirizine HCl 10 MG 1 tablet Orally Onc e a day for 30 day(s) Active Social History Tobacco Use: Social History Observation Description Date Details (start date - stop date) Never Smoker NA - NA Tobacco Use/Smoking Question Answer Notes Patient is a nonsmoker Additional Findings: Tobacco Non-User Cu rrent non-smoker, currently using no form of tobacco Alcohol Screen Question Answer Notes Did you have a drink containing alcohol in the p ast year? No Points 0 Interpretation Negative Vital Signs Blood pressure systolic 132 mm Hg 11/20/19 25 Blood pressure diastolic 86 mm Hg 025 Height 60 in 11/19/2024 Weight 120 lbs 11/19/2024 BMI 23.43 kg/m2 11/19/2024 weight is down 2 pounds [facility] e 07-02-24 Encounters Encounter Location Date Provider Diagnosis Rudy Proctor MD [address] [place] [address] [place] [phone] 11/19/2024 Rudy Proctor Achilles tendinitis of right lower extremity M76.61 ; Immunity status testing Z01.84 ; Otitis media H66.90 ; Hypercholesteremia E78.00 and Depression screening Z13.31 Assessments Encounter Date Diagnosis (ICD Code) Assessment Notes Treatment Notes Treatment Clinical Notes Section Notes 11/19/2024 Achilles tendinitis of right lower extremity (ICD-10 - M76.61) 11/19/2024 Immunity status testing (ICD-10 - Z01.84) Measles IGG pending 11/19/2024 Otitis media (ICD-10 - H66.90) patient verbalized understanding of medication and directions for use 11/19/2024 Hypercholesteremia (ICD-10 - E78.00) stable, will continue current regiment 11/19/2024 Depression screening (ICD-10 - Z13.31) negative screen Plan Of Treatment Medication Medication Name Sig Start Date Stop Date Notes Atorvastatin Calcium 10 mg TAKE 1 TABLET DAILY Amoxicillin-Pot Clavulanate 875-125 MG 1 tablet Orally every 12 hrs for 10 days 11/19/2024 Treatment Notes Assessment Notes Immunity status testing Measles IGG pend ing Otitis media patient verbalized u nderstanding of medication and directions for use Hypercholesteremia stable, will continu e current regiment Depression screening negative screen Pending Test Test Name Order Date MEASLES ANTIBODY (IGG) 11/19/2024 Next Appt Details Follow Up: 6 Months, Reason: Provider Name:Rudy Chandler ier, 05/14/2025 07:30:00 AM, [address], [address], [place], [place], [phone], Provider Name:Rudy Chandler ier, 05/21/2025 09:00:00 AM, [address], [address], [place], [phone], Provider Name:Rudy Chandler ier, 11/08/2025 07:15:00 AM, [address], [address], [place], [phone], Provider Name:Rudy Chandler ier, 11/15/2025 11:00:00 AM, [address] [facility], Suite [facility], [place], [phone], Progress Notes * SHAELatoya ADOB:[birth year] (84 yo F)Acc No.[id number]:11/19/2024 Patient: Ella Latoya ROWE Provider: Ella Proctor MD :1940 A ge:83 Y S ex:Female Date:11/19/2024 Address:[address] [place], [place] [address]agn[facility] [id number] Subjective: * Chief Complaints: * R eview labs * HPI: D epression Screening: PHQ-9 L ittle interest or pleasure in doing things N ot at all, F eeling down, depressed, or hopeless N ot at all, T rouble falling or staying asleep, or sleeping too much N ot at all, F eeling tired or having little energy N ot at all, P oor appetite or overeating N ot at all, F eeling bad about yourself or that you are a failure, or have let yourself or your family down N ot at all, T rouble concentrating on things, such as reading the newspaper or watching television N ot at all, M oving or speaking so slowly that other people could have noticed; or the opposite, being so fidgety or restless that you have been moving around a lot more than usual N ot at all, T houghts that you would be better off or of hurting yourself in some way N ot at all, T otal Score 0 . I nterpretation and Intervention D epression Screening Findings N eghannah, F ollow-Up for Depression : review of PHQ-9 found negative result, no follow-up needed. C ommunication Needs: Communication Needs D oes the patient have a hearing impairment N o, D oes the patient have a vision impairment? Y es, I f yes, what is the vision impairment? G lasses, D oes the patient have a cognition impairment? N o. F all Risk: History H ave you had any falls with injury in the past year? N o, H ave you had two or more falls in the past year? N o. S VEENA Questions: SDOH Questions I n the past year have you been worried about losing housing? N o, I n the past year have you or any family members you live with been unable to get any of the following when it was really needed? Check all that apply: N one. S ymptom(s): patient is a 83 yo female here for reviw of recent labs and follow up of chronic issues s till with tendonitis. did 3 months of physical therapy/ walking feels stiff/ sometimes she feels as though the tendonitis goes all the way up to her back. C oronary Artery Disease: Patient presents for follow-up of coronary artery disease _ . T he last appointment for coronary artery disease was _ . T he patient complains of chest pain _ . T he patient complains of shortness of breath _ . T he patient reports palpitations _ . O ther symptoms include _ . P atient denies _ . I nvestigational studies include _ . R isk factors include? . C omplications from coronary artery disease include _ . I nterventions include _ . M edication(s) include _ . R esponse to medications _ .? * ROS: G eneral/Constitutional: Change in appetite d enies. C hills d enies. F atigue d enies. F ever d enies, denies. L ightheadedness _ . ? O phthalmologic: Blurred vision d enies. D ischarge d enies. P ain d enies. E NT: Decreased hearing d enies. S ore throat d enies, denies. S wollen glands d enies. E ndocrine: Cold intolerance d enies. E xcessive thirst d enies. H eat intolerance d enies. W eight loss d enies. R espiratory: Cough d enies, . P ain with inspiration d enies. S hortness of breath at rest d enies. S hortness of breath with exertion d enies. W heezing d enies. C ardiovascular: Chest pain at rest d enies, . C hest pain with exertion d enies, . C yanosis _ . D ifficulty laying flat _ . D izziness _ . F luid accumulation in the legs _ . I rregular heartbeat denies, . S hortness of breath d enies, . G astrointestinal: Abdominal pain d enies, denies. B lood in stool d enies. C hange in bowel habits d enies, denies. C onstipation d enies. D iarrhea?denies, denies. N ausea d enies, denies. R ectal bleeding d enies. V omiting d enies , denies. H ematology: Prolonged bleeding d enies. G enitourinary: Blood in urine d enies. D ifficulty urinating d enies. F requent urination d enies, denies. P ainful urination d enies. U rinary incontinence D enies. M usculoskeletal: Joint stiffness d enies. P ainful joints d enies, denies. W eakness d enies. S kin: Dry skin d enies. I tching d enies. D enies?Mole(s), changes in moles, new moles or any lesions of concern. D enies P hotosensitivity. R samir d enies. N eurologic: Dizziness d enies, denies. F ainting d enies. H eadache d enies, denies. T ingling/Numbness d enies. T remor d enies. ? * Medical History: * Surgical History: * Hospitalization/Major Diagno stic Procedure: * Family History: F ather: 75 yrs. M other: 100 yrs. 2 son(s) . . Mother Natural Cardiac DE, No family history of substance abuse or mental illness, Denies mental health/substance abuse family history, No pertinent family medical history, No pertinent family medical history, Denies mental health/substance abuse family history, No pertinent family medical history. * Social History: T obacco Use: T obacco Use/Smoking P atient is a n onsmoker, A dditional Findings: Tobacco Non-User C urrent non-smoker, currently using no form of tobacco. D rugs/Alcohol: A lcohol Screen D id you have a drink containing alcohol in the past year? N o, P oints 0 , I nterpretation N egative. M iscellaneous: C affeine: none. Children: yes. Exercise: yes, Yoga 2-3 times a wk and walk 2-3 miles daily. Housing: owning. Living with: alone. Marital status: . Occupation: retired. Pets: none. Travel outside of the [place]: yes, [place]. * Medications: T akingCetirizine HCl 10 MG Tablet 1 tablet Orally Once a day Acetaminophen 500 MG Tablet 0.5 tablet as needed Orally every 6 hrs Hugwfexins-XLJC-Scijgbez 50-325-40 mg Tablet TAKE 1 TABLET EVERY 6 HOURS NEEDED Propranolol HCl ER 60 mg Capsule Extended Release 24 Hour TAKE 1 CAPSULE DAILY Atorvastatin Calcium 10 mg Tablet TAKE 1 TABLET DAILY Taking Cetirizine HCl 10 MG Tablet 1 tablet Orally Once a day Taking Acetaminophen 500 MG Tablet 0.5 tablet as needed Orally every 6 hrs Taking Reqfugzuix-DILL-Fegwyusf 50-325-40 mg Tablet TAKE 1 TABLET EVERY 6 HOURS NEEDED Taking Propranolol HCl ER 60 mg Capsule Extended Release 24 Hour TAKE 1 CAPSULE DAILY Taking Atorvastatin Calcium 10 mg Tablet TAKE 1 TABLET DAILY Not-Taking/PRNAmoxicillin-Pot Clavulanate 875-125 MG Tablet 1 tablet Orally every 12 hrs Ocuflox 0.3 % Solution as directed Ophthalmic 4 times per day CeleBREX 200 MG Capsule 1 capsule with food Orally Once a day Ocuflox 0.3 % Solution 1 drop into affected eye Ophthalmic Four times a day Xanax 0.25 MG Tablet 1 tablet Orally Twice a day Not-Taking/PRN Amoxicillin-Pot Clavulanate 875-125 MG Tablet 1 tablet Orally every 12 hrs Not-Taking/PRN Ocuflox 0.3 % Solution as directed Ophthalmic 4 times per day Not-Taking/PRN CeleBREX 200 MG Capsule 1 capsule with food Orally Once a day Not-Taking/PRN Ocuflox 0.3 % Solution 1 drop into affected eye Ophthalmic Four times a day Not-Taking/PRN Xanax 0.25 MG Tablet 1 tablet Orally Twice a day DiscontinuedMetrogel 1 % Gel 1 application Externally Once a day Medication List reviewed and reconciled with the patientDiscontinued Metrogel 1 % Gel 1 application Externally Once a day Medication List reviewed and reconciled with the patient * Allergies: L atex: ally[Allergies Verified] Objective: * Vitals: H t: 60, Wt: 120, BMI:23.43, BP:132/86, Wt-k.43. weight is down 2 pounds since 07-02-24. * P ast Orders: L ab:Complete Blood Count Auto Diff (Order Date - 11/13/2024) (Collection Date & Time - 11/13/2024 07:30 AM) Value Reference Range White Blood Count 7.5 4.8-10.8 - X10*3/uL Red Blood Count 4.56 4.20-5.50 - X10*6/uL Hemoglobin 14.5 12.0-16.0 - g/dl Hematocrit 43.4 37.0-47.0 - % Mean Corpuscular Volume 95.2 80.0-98.0 - fL Mean Corpuscular Hemoglobin 31.8 27.0-33.0 - pg Mean Corpuscular HGB Conc 33.4 31.0-35.0 - g/ dl Red Cell Distribution Width 12.7 11.0-16.0 - % Platelet Count 258 160-400 - X10*3/uL Mean Platelet Volume 9.5 9.4-12.3 - fL Neutrophils Percent Auto 49.8 45-73 - % Imm Gran Pct Auto 0.4 0.0-0.4 - % Lymphocytes Percent Auto 33.2 20-40 - % Monocytes Percent Auto 9.2 2-11 - % Eosinophils Percent Auto 6.7 H 0-4 - % Basophils Percent Auto 0.7 0-2 - % NRBC Pct Auto 0.0 0.0-0.2 - /100WBC Neutrophils Absolute Auto 3.7 2.0-8.3 - x10* 3/uL Imm Gran Abs Auto 0.03 0.00-0.03 - X10*3/uL Lymphocytes Absolute Auto 2.5 1.2-4.9 - X10* 3/uL Monocytes Absolute Auto 0.7 0.1-1.2 - X10*3/ uL Eosinophils Absolute Auto 0.5 H 0.0-0.4 - X10* 3/uL Basophils Absolute Auto 0.1 0.0-0.2 - X10*3/ uL NRBC Abs Auto 0.000 0.0-0.012 - X10*3/uL L ab:Comprehensive [place]. Panel Fast (Order Date - 11/13/2024) (Collection Date & Time - 11/13/2024 07:30 AM) Value Reference Range Sodium 140 135-145 - mmol/L Bilirubin Total 0.4 0.0-1.0 - mg/dL Aspartate Amino Transferase 30 5-31 - U/L Alanine Aminotransferase 30 0-31 - U/L Total Protein 7.2 6.5-8.0 - g/dL Albumin Level 4.9 3.5-5.0 - g/dL Alkaline Phosphatase 52 39-117 - U/L Potassium 4.2 3.3-5.1 - mmol/L Chloride 106 96-108 - mmol/L Carbon Dioxide 26 22-29 - mmol/L Anion Gap 12 12-20 - Blood Urea Nitrogen 16 9-16 - mg/dL Creatinine 0.79 0.5-1.4 - mg/dL Estimated Glomerular Filt Rate > 60 - Glucose Fasting 111 H 60-99 - mg/dL Calcium 9.7 8.4-10.2 - mg/dL L ab:Lipid Panel (Order Date - 11/13/2024) (Collection Date & Time - 11/13/2024 07:30 AM) Value Reference Range Triglycerides 156 H <150 - mg/dL Cholesterol 192 <200 - mg/dL LDL Cholesterol Calculated 106 H <100 - mg/dL HDL Cholesterol 55 >40 - mg/dL L ab:UA ClnCatch+Micro w/rflx Cult (Order Date - 11/13/2024) (Collection Date & Time - 11/13/2024 07:30 AM) Value Reference Range Color Urine Yellow - Appearance Urine Clear - PH 5.0 5.0-9.0 - Glucose Urine UA Negative Negative - mg/dL Urine Blood Negative Negative - Specific [place] - Urine 1.025 1.005-1.025 - Urine Protein Negative Neg-Trace - mg/dL Urine Ketones Negative Negative - mg/dL Nitrite Urine Negative Negative - Leukocyte Esterase Urine Trace A Negative - RBC Urine 0-2 0-2 - /HPF WBC Urine 0-5 0-5 - /HPF Squamous Epithelial Cell Urine 0-2 0-2 - /HP F Bacteria Urine None Seen None Seen - Hyaline Casts Urine 0-2 0-2 - /LPF * Examination: G eneral Examination: GENERAL APPEARANCE: w ell developed, well nourished, in no acute distress , pleasant, in no acute distress. HEAD: n ormocephalic, atraumatic. EYES: p upils equal, round, reactive to light and accommodation, sclera non-icteric. EARS: n ormal. ORAL CAVITY: m ucosa moist. THROAT: c lear. NECK/THYROID: n erick supple, full range of motion, no cervical lymphadenopathy, no bruits. SKIN: w arm and dry, no suspicious lesions. HEART: r egular rate and rhythm, S1, S2 normal, no murmurs , . LUNGS: c lear to auscultation bilaterally , clear to auscultation bilaterally. BREASTS: N o mass, no lump. ABDOMEN: s oft, nontender, nondistended, bowel sounds present, normal, no organomegaly , no masses palpable , soft, nontender, nondistended, bowel sounds present. RECTAL EXAM: , no masses palpable no stool sent with card.? FEMALE GENITOURINARY: d one by esthetic dermatologist. EXTREMITIES: n o clubbing, cyanosis, or edema , .? PERIPHERAL PULSES: n ormal. NEUROLOGIC: n onfocal, motor strength normal upper and lower extremities, sensory exam intact , nonfocal. Assessment: * Assessment: 1. A chilles tendinitis of right lower extremity - M76.61 (Primary) 2 . I mmunity status testing - Z01.84 3 . O titis media - H66.90 4 .?Hypercholesteremia - E78.00 5 . D epression screening - Z13.31 ? Plan: * Treatment: 2. I mmunity status testing Notes: Measles IGG pending 3. O titis media Start Amoxicillin-Pot Clavulanate Tablet, 875-125 MG, 1 tablet, Orally, every 12 hrs, 10 days, 20 Tablet. Notes: patient verbalized understanding of medication and directions for use 4. H ypercholesteremia Continue Atorvastatin Calcium Tablet, 10 mg, TAKE 1 TABLET DAILY. Notes: stable, will continue current regiment 5. D epression screening Notes: negative screen * Procedure Codes: 3 6415 VENIPUNCT, ROUTINE* * Follow Up: 6 Months * * Sign off status: Completed true * Provider: Ella Proctor MD Date: 0 11/19/2024 Generated for Bernardo douglas/Natali/Magueitting on: 06/09/2024 08:53 AM EST History and Physical Notes * HPI (History of Present Illness) Category Sub-Category Detail Notes Category Not es Coronary Artery Disease Patient presents for follow-up of coronary artery disease The last appointment for coronary artery disease was The patient complains of chest pain ____ __ The patient complains of shortness of br eath The patient reports palpitations Other symptoms include Patient denies Investigational studies include Risk factors include Complications from coronary artery disea se include Interventions include Medication(s) include Response to medications Symptom(s) patient is a 83 yo female here for reviw of recent labs and follow up of chronic issues still with tendonitis. did 3 months of physical therapy/ walking feels stiff/ sometimes she feels as though the tendonitis goes all the way up to her back Depression Screening PHQ-9 Little inte rest or pleasure in doing things: Not at all Feeling down, depressed, or hopeless: No t at all Trouble falling or staying asleep, or sl eeping too much: Not at all Feeling tired or having little energy: N ot at all Poor appetite or overeating: Not at all Feeling bad about yourself o r that you are a failure, or have let yourself or your family down: Not at all Trouble concentrating on thi ngs, such as reading the newspaper or watching television: Not at all Moving or speaking so slowly that other people could have noticed; or the opposite, being so fidgety or restless that you have been moving around a lot more than usual: Not at all Thoughts that you would be b rony off or of hurting yourself in some way: Not at all Total Score: 0 Interpretation and Intervention Depression Stephanie perez Findings: Negative Follow-Up for Depression: : review of PH Q-9 found negative result, no follow-up needed SDOH Questions SDOH Questions In the past year have you been worried about losing housing?: No In the past year have you or any family members you live with been unable to get any of the following when it was really needed? Check all that apply:: None Fall Risk History Have you had any falls with injury i n the past year?: No Have you had two or more falls in the st year?: No Communication Needs Communication Needs Does the patient have a hearing impairment: No Does the patient have a vision impairmen t?: Yes If yes, what is the vision impairment?: Glasses Does the patient have a cognition impair ment?: No Examination Category Sub-Category Detail Notes Category Not es General Examination GENERAL APPEARANCE: well dev eloped, well nourished, in no acute distress , pleasant, in no acute distress HEAD: normocephalic, atrau matic EYES: pupils equal, round, reactive to light and accommodation, sclera non-icteric EARS: normal THROAT: clear NECK/THYROID: neck supple, full ra nge of motion, no cervical lymphadenopathy, no bruits HEART: regular rate and rhy thm, S1, S2 normal, no murmurs , LUNGS: clear to auscultatio n bilaterally , clear to auscultation bilaterally ABDOMEN: soft, nontender, non distended, bowel sounds present, normal, no organomegaly , no masses palpable , soft, nontender, nondistended, bowel sounds present NEUROLOGIC: nonfocal, motor stre ngth normal upper and lower extremities, sensory exam intact , nonfocal SKIN: warm and dry, no roni picious lesions EXTREMITIES: no clubbing, cyanosi s, or edema , PERIPHERAL PULSES: normal BREASTS: No mass, no lump RECTAL EXAM: , no masses palpable no stool sent with card FEMALE GENITOURINARY: done by esthetic dermatologist ORAL CAVITY: mucosa moist
--- OUTSIDE RECORDS SUMMARY | 2024-11-26 09:08 | XMS_ITS ---
Author Organization Rudy Proctor MD Address [address] [place] [phone] Care Team Providers Care Physician Compensation Analyst Name Role Phone Rudy Proctor Primary Care Provider Results Component Value Reference Range Notes Occult Blood, Stool, Guaiac Reviewed date:12/18/2024 10:11:40 AM Interpretation:Negative Performing Lab: Notes/Report: Negative Occult Blood, Stool, Guaiac Neg REASON FOR VISIT Stool card Encounters Encounter Location Date Provider Diagnosis Rudy Proctor MD [address] [place] [address] [place] [phone] 11/26/2024 Rudy Proctor Colon cancer screening Z12.11 Assessments Encounter Date Diagnosis (ICD Code) Assessment Notes Treatment Notes Treatment Clinical Notes Section Notes 11/26/2024 Colon cancer screening (ICD-10 - Z12.11) Plan Of Treatment Next Appt Details Provider Name:Rudy burkett, 05/14/2025 07:30:00 AM, [address] [place] [address], [address], [phone], Provider Name:Rudy burkett, 05/21/2025 09:00:00 AM, [address] [place] [address], [address], [phone], Provider Name:Rudy burkett, 11/08/2025 07:15:00 AM, [address] [place] [address], [address], [phone], Provider Name:Rudy burkett, 11/15/2025 11:00:00 AM, [address], [address], [place], [place], [phone], Progress Notes * Latoya KAUFMAN ADOB:[birth year] (84 yo F)Acc No.[id number]:11[birth year]26[birth year]24 Patient: Latoya THIBODEAUX :1940 A ge:84 Y S ex:Female Address:[address] [place] [address] [place], [id number] Subjective: * Chief Complaints: * S tool card * Medical History: * Surgical History: * Hospitalization/Major Diagno stic Procedure: * Medications: Objective: * Vitals: * Physical Examination: Assessment: * Assessment: 1. C [facility] cancer screening - Z12.11 (Primary) Plan: * Treatment: Value Reference Range O ccult Blood, Stool, Guaiac Neg * Procedure Codes: 8 2270 TEST FOR BLOOD, FECES * true * Date: Generated for Bernardo douglas/Natali/eTbookersmitting on: 06/09/2024 08:52 AM EST
--- OUTSIDE RECORDS SUMMARY | 2025-04-01 05:00 | XMS_ITS ---
Author Organization Rudy Proctor MD Address [address] [place], [place] [id number] Care Team Providers Care Aniline Press Worker Name Role Phone Rudy Proctor Primary Care Provider Allergies Allergen (clinical drug ingredient) Drug/Non Drug Allergy documented on EMR Reaction Allergy Type Onset Date Status Latex Latex (uncoded) rash Allergy Acti ve REASON FOR VISIT Wheezing traveled out of the country returned 03-27-25 Is testing for Covid, video [phone] Medications Medication SIG (Take, Route, Frequency, Duration) [...] 12 hrs for 7 days 06/14/2024 Not-Taking Xdqekxyvbm-KGWH-Qhcpzotg 50-325-40 mg TAKE 1 TABLET EVERY 6 HOURS NEEDED Active Atorvastatin Calcium 10 mg TAKE 1 TABLET DAILY Active Amoxicillin-Pot Clavulanate 875-125 MG 1 tablet Orally every 12 hrs for 10 days 11/19/2024 Not-Taking Propranolol HCl ER 60 mg TAKE 1 CAPSULE DAILY Active Acetaminophen 500 MG 0.5 tablet as neede d Orally every 6 hrs Active Cetirizine HCl 10 MG 1 tablet Orally Onc e a day for 30 day(s) Active Albuterol Sulfate HFA 108 (90 Base) MCG/ACT 2 puff as needed Inhalation every 4 hrs for 30 days 04/01/2025 Active Vital Signs Height 60 in 04/01/2025 Weight 119 lbs 04/01/2025 BMI 23.24 kg/m2 04/01/2025 weight is 119 BP not taken a t home no temp Encounters Encounter Location Date Provider Diagnosis Rudy Proctor MD [address] [place] [phone] 04/01/2025 Rudy Proctor Wheezing R06.2 Assessments Encounter Date Diagnosis (ICD Code) Assessment Notes Treatment Notes Treatment Clinical Notes Section Notes 04/01/2025 Wheezing (ICD-10 - R06.2) patient verbalized understanding of medicationand directions for use Plan Of Treatment Medication Medication Name Sig Start Date Stop Date Notes Albuterol Sulfate HFA 108 (9 0 Base) MCG/ACT 2 puff as needed Inhalation every 4 hrs for 30 days 04/01/2025 Treatment Notes Assessment Notes Wheezing patient verbalized u nderstanding of medicationand directions for use Next Appt Details Provider Name:Rudy burkett, 05/14/2025 07:30:00 AM, [address] [place] [address], [phone], Provider Name:Rudy burkett, 05/21/2025 09:00:00 AM, [address] [place] [address], [phone], Provider Name:Rudy burkett, 11/08/2025 07:15:00 AM, [address] [place] [address], [phone], Provider Name:Rudy burkett, 11/15/2025 11:00:00 AM, [address] [place] [address], [phone], Progress Notes * Latoya KAUFMAN ADOB:[birth year] (84 yo F)Acc No.[id number]:04/01/2025 Patient: Latoya THIBODEAUX Provider: Ella Proctor MD :1940 A ge:84 Y S ex:Female Date:04/01/2025 Address:[address] [place] [address] [id number] Subjective: * Chief Complaints: * W brissa traveled out of the country returned 03-27-25 Is testing for CovidVideo [phone] * HPI: S ymptom(s): patient is a 84 yo female just got back from [facility]. has been sick for over one week.one week ago got a cold sneezzing and sniffles. that is getting better. wheezing is new. never used and inhaler. is a little short of breath. Telehealth L ocation of provider rendering services: [address], [address], L ocation of patient: a t address listed in demographics for today's visit, P atient identification confirmed using: WILNER Caputo ame, T elehealth method: T elephone only. Patient not visible to care provider., C onsent: P atient verbally consented to treatment, Patient verbally consented to billing insurance company, Patient informed of any privacy concerns related to method of visit, T otal time spend talking with patient (minutes) 1 8. * ROS: G eneral/Constitutional: Denies C hills. D enies F atigue. D enies F ever. D enies H eadache. E NT: Denies S ore throat. R espiratory: Admits C ough. D enies S hortness of breath at rest. A dmits S hortness of breath with exertion. A dmits S putum production. A dmits W heezing. G astrointestinal: Denies D iarrhea. D enies N ausea. * Medical History: * Surgical History: * Hospitalization/Major Diagno stic Procedure: * Medications: T akingCetirizine HCl 10 MG Tablet 1 tablet Orally Once a day Acetaminophen 500 MG Tablet 0.5 tablet as needed Orally every 6 hrs Propranolol HCl ER 60 mg Capsule Extended Release 24 Hour TAKE 1 CAPSULE DAILY Atorvastatin Calcium 10 mg Tablet TAKE 1 TABLET DAILY Kqhuvauzym-IATU-Rzvmfndd 50-325-40 mg Tablet TAKE 1 TABLET EVERY 6 HOURS NEEDED Taking Cetirizine HCl 10 MG Tablet 1 tablet Orally Once a day Taking Acetaminophen 500 MG Tablet 0.5 tablet as needed Orally every 6 hrs Taking Propranolol HCl ER 60 mg Capsule Extended Release 24 Hour TAKE 1 CAPSULE DAILY Taking Atorvastatin Calcium 10 mg Tablet TAKE 1 TABLET DAILY Taking Gvrsjxlfks-YDUS-Rqpmjuzg 50-325-40 mg Tablet TAKE 1 TABLET EVERY 6 HOURS NEEDED Not-Taking/PRNAmoxicillin-Pot Clavulanate 875-125 MG Tablet 1 tablet Orally every 12 hrs Amoxicillin-Pot Clavulanate 875-125 MG Tablet 1 tablet [...] List reviewed and reconciled with the patientNot-Taking/PRN Amoxicillin-Pot Clavulanate 875-125 MG Tablet 1 tablet Orally every 12 hrs Not-Taking/PRN Amoxicillin-Pot Clavulanate 875-125 MG Tablet 1 [...] Objective: * Vitals: H t: 60, Wt: 119, BMI:23.24, Wt-k.98. weight is 119 BP not taken at home no temp. * Examination: G eneral Examination: GENERAL APPEARANCE: a lert, well hydrated, in no distress.? Assessment: * Assessment: 1. W heezing - R06.2 (Primary) Plan: * Treatment: * Procedure Codes: * * Sign off status: Completed true * Provider: Ella Proctor MD Date: Generated for Bernardo douglas/Natali/Aronsmitting on: 06/09/2024 08:52 AM EST History and Physical Notes * HPI (History of Present Illness) Category Sub-Category Detail Notes Category Not es Symptom(s) Telehealth Location of prov ider rendering services:: [address], [address] Location of patient:: at address listed in demographics for today's visit Patient identification confirmed using:: Name, Telehealth method:: Telephone only. Arielle ent not visible to care provider. Consent:: Patient verbally c onsented to treatment, Patient verbally consented to billing insurance company, Patient informed of any privacy concerns related to method of visit Total time spend talking with patient (m inutes): 18 Examination Category Sub-Category Detail Notes Category Not es General Examination GENERAL APPEARANCE: alert, w ell hydrated, in no distress
--- NOTE | ~2025-04-09 | MM_ITS ---
EXAMINATION: MM SCREENING DIGITAL BREAST TOMOSYNTHESIS, BILATERAL CLINICAL INFORMATION: Screening. Asymptomatic. Ultrasound-guided left needle core biopsy on October 31, 2007; no tissue marker was placed. Pathology results showed fibroadenoma. COMPARISON: Comparison made to multiple prior, most recent April 03, 2024, and most remote March 02, 2019. TECHNIQUE: Digital breast tomosynthesis is performed in mediolateral oblique and craniocaudal views along with computer-aided detection (CAD). Synthesized 2D images are generated from the tomosynthesis. FINDINGS: BREAST COMPOSITION: The breasts are heterogeneously dense, which may obscure small masses. RIGHT BREAST: No significant masses, suspicious calcifications or other abnormalities are seen. LEFT BREAST: History of previous needle core biopsy. No significant masses, suspicious calcifications or other abnormalities are seen. MM/MM tomosynthesis screening BI IMPRESSION: BILATERAL BREASTS: Benign, no mammographic evidence of malignancy. Normal interval follow-up is recommended in 12 months. ASSESSMENT: BI-RADS: Category 2: Benign RECOMMENDATION: Routine annual mammography screening. FOLLOW-UP: 1 year F/U This examination should not preclude the clinical evaluation of a suspicious palpable abnormality. This patient's information was entered into a reminder system with a target due date for their next mammogram. Electronically signed by: Moira Gonzalez MD 04/10/2025 07:10 PM LAILA
--- OUTSIDE RECORDS SUMMARY | 2025-04-09 08:52 | XMS_ITS | Patient Health Record ---
Author Organization [employer] [facility], d/b/a [facility] Address [address] [place] [address] Care Team Providers Care Records Management Director Name Role Phone Mak Skinner Unavailable [phone] Lexii Snowden Unavailable [phone] Allergies Allergen (clinical drug ingredient) Drug/Non Drug Allergy documented on EMR Reaction Allergy Type Onset Date Status Latex latex (uncoded) Unknown Allergy Acti ve Results Component Value Reference Range Notes Influenza (A,B) + SARS Antig en ARUNA [COVID-19] Reviewed date:12/03/2024 04:37:56 PM Interpretation:Normal Performing Lab: Notes/Report: CONTROL Valid COVID-19 Negative Negative FLU A Negative Negative FLU B Negative Negative Strep A Throat Reviewed date:12/03/2024 12:23:57 PM Interpretation: Performing Lab: Notes/Report: Strep A+ positive Negative - Control valid Reason For Referral No Information Medications Medication SIG (Take, Route, Frequency, Duration) Notes Start Date End Date Status Qctgobjt-Tcwvhwptc-EM 3.5-10199-1 4 drops into affected ear Otic Three times a day; Duration: 7 days 10/30/2021 Not-Taking Amoxicillin 500 MG 1 tablet Orally Thre e times a day; Duration: 7 days 10/30/2021 Not-Taking Lipitor 10 MG 1 tablet Orally Once a day Active Doxycycline Hyclate 100 MG 2 tablets Orally within 72 hrs of removing tick bite; Duration: 1 days 12/03/2024 Active Propranolol HCl ER 60 MG 1 capsule Orall y Once a day Active ZyrTEC Allergy 10 MG 1 tablet Orally Onc e a day Active Tylenol Active Amoxicillin 500 MG 1 tablet Orally Twice daily; Duration: 10 days for strep infection 12/03/2024 Active Immunizations Vaccine Route Administration Date Status Comme nts COVID-19 Vaccine, Pfizer Unknown 07/12/2020 Administere d COVID-19 Vaccine, Pfizer Unknown 08/02/2020 Administere d COVID-19 Vaccine, Pfizer Unknown 03/03/2021 Administere d COVID-19 Vaccine, Pfizer 12+ Unknown 09/24/2021 Adminis tered Vital Signs Heart Rate 78 /min 12/03/2024 Temperature 98 degrees Fahrenheit 12/03/2024 Blood pressure diastolic 68 mm Hg 12/03/2024 Oximetry 98 % 12/03/2024 Height 60 in 12/03/2024 Blood pressure systolic 122 mm Hg 12/03/2024 Weight 122 lbs 12/03/2024 BMI 23.82 kg/m2 12/03/2024 Encounters Encounter Location Date Provider Diagnosis [employer] [facility], d/b/a [address] [address] 12/03/2024 Lexii Snowden Insect bite (nonvenomous) of abdominal wall, initial encounter S30.861A ; Streptococcal infection, unspecified site A49.1 ; Fatigue, unspecified type R53.83 ; Headache, unspecified R51.9 ; Loose stools R19.5 and Fever, unspecified R50.9 Assessments Encounter Date Diagnosis (ICD Code) Assessment Notes Treatment Notes Treatment Clinical Notes Section Notes 12/03/2024 Streptococcal infection, unspecified site (ICD-10 - A49.1) Many cases of atypical Strep in our office the past two weeks. Tested despite denying sore throat. Strep positive. 12/03/2024 Insect bite (nonvenomous) of abdominal wall, initial encounter (ICD-10 - S30.861A) Removed embedded tick yesterday from left medial calf. Concern if partially still embedded. Washed with alcohol wipe, soap and water, and applied Neosporin. Found another tick on left flank. She has a dog. She was gardening a couple days ago. Denies previous tick bites. 12/03/2024 Fatigue, unspecified type (ICD-10 - R53.83) Walks 2-3 miles daily with a friend but today cut down to 2 miles. Today felt unusually warm. Temp was 98 but this is high for her. 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 Denies fever, SOB, CHRISTIE. Wonders if she has tick disease. Discussed strep vs flu vs covid vs tick disease. Advised tick panel likely premature if no previous ticks 12/03/2024 Headache, unspecified (ICD-10 - R51.9) 12/03/2024 Loose stools (ICD-10 - R19.5) 12/03/2024 Fever, unspecified (ICD-10 - R50.9) 12/03/[address] Veronica Malcolm was the consulting physician at the time these clinical services were provided and was available if necessary. Plan Of Treatment No Information Insurance Providers Payer Name Payer Address Payer Phone Subscriber Number Group Number Insured Name Patient Relationship to Insured Coverage Start Date Coverage End Date MEDICARE B [address] [place] [address] [id number] EKTA KAUFMAN Self - patient is the insured 8 Medical (General) History Medical History History ICD Code hyperlipidemia
--- OUTSIDE RECORDS SUMMARY | 2025-04-09 08:53 | XMS_ITS | Patient Health Record ---
Author Organization [facility] Address [address] [place] [address] Care Team Providers Care Education Department Chair Name Role Phone Keo Caraballo Unavailable [phone] Reason For Referral No Information Plan Of Treatment No Information
--- OUTSIDE RECORDS SUMMARY | 2025-04-09 08:54 | XMS_ITS | Patient Health Record ---
Author Organization Rudy Proctor MD Address [address] [place], [place] [phone] Care Team Providers Care Radio Tower Technician Name Role Phone Rudy Proctor Primary Care Provider Allergies Allergen (clinical drug ingredient) Drug/Non Drug Allergy documented on EMR Reaction Allergy Type Onset Date Status Latex Latex (uncoded) rash Allergy Acti ve Results Component Value Reference Range Notes Liver Panel Reviewed date:05/15/2024 05:09:51 PM Interpretation: Performing Lab:[address] [phone] Notes/Report: Bilirubin Total 0.4 0.0-1.0 mg/dL Bilirubin Direct 0.1 0.0-0.5 mg/dL Aspartate Amino Transferase 34 5-31 U/L Slight Hemolysis.Interpret result with caution. Alanine Aminotransferase 32 0-31 U/L Total Protein 7.7 6.5-8.0 g/dL Albumin Level 4.5 3.5-5.0 g/dL Alkaline Phosphatase 60 39-117 U/L Lipid Panel with Reflex Reviewed date:05/15/2024 05:09:42 PM Interpretation: Performing Lab:[address] [phone] Notes/Report: Triglycerides 188 <150 mg/dL Slight Lipemia. [...] ff Reviewed date:11/13/2024 12:15:38 PM Interpretation: Performing Lab:[facility], [address] [place] [phone] Notes/Report: White Blood Count 7.5 4.8-10.8 X10*3/uL [...] NRBC Abs Auto 0.000 0.0-0.012 X10*3/uL Comprehensive [place]. Panel Fa Reviewed date:11/13/2024 11:58:03 AM Interpretation: Performing Lab:[facility], [address] [place] [phone] Notes/Report: Sodium 140 135-145 mmol/L Potassium 4.2 [...] Panel Reviewed date:11/13/2024 11:45:35 AM Interpretation: Performing Lab:[facility], [address] [place] [phone] Notes/Report: Triglycerides 156 <150 mg/dL Desirable Triglyceride: [...] t Reviewed date:11/13/2024 12:15:10 PM Interpretation: Performing Lab:[facility], [address] [place] [phone] Notes/Report: Urine, Clean Catch Color Urine Yellow Appearance Urine Clear PH 5.0 5.0-9.0 Glucose Urine UA Negative Negative mg/dL Urine Blood Negative Negative Specific [place] - Urine 1.025 1.005-1.025 Urine Protein Negative Neg-Trace mg/dL Urine Ketones Negative Negative mg/dL Nitrite Urine Negative Negative Leukocyte Esterase Urine Trace Negative RBC Urine 0-2 0-2 /HPF WBC Urine 0-5 0-5 /HPF Squamous Epithelial Cell Urine 0-2 0-2 /HPF Bacteria Urine None Seen None Seen Hyaline Casts Urine 0-2 0-2 /LPF Occult Blood, Stool, Guaiac Reviewed date:12/18/2024 10:11:40 AM Interpretation:Negative Performing Lab: Notes/Report: Negative Occult Blood, Stool, Guaiac Neg Nahum Baxter Reviewed date:05/15/2024 05:06:10 PM Interpretation: Performing Lab:[facility], [address] [place] [phone] Notes/Report: Nahum Baxter See Note Specimen held untested for 24 hours; Call to request Chemistry testing. Nahum Baxter Reviewed date:11/13/2024 11:45:10 AM Interpretation: Performing Lab:[facility], [address] [place] [phone] Notes/Report: Nahum Baxter See Note Specimen held untested for 24 hours; Call to request Chemistry testing. Rubeola IgG (Measles) Reviewed date:11/20/2024 11:02:03 AM Interpretation: Performing Lab:[facility], [address] [place] [phone] Notes/Report: Rubeola IgG (Measles) >300.00 AU/mL Interpretation ----- <13.50 Not consistent with immunity 13.50-16.49 Equivocal >16.49 Consistent with immunity The presence of measles IgG suggests immunization or past or current infection with measles virus. For additional information, please refer to http://education.[employer]/faq/XDD859 (This link is being provided for informational/ educational purposes only.) THIS TEST WAS PERFORMED AT: [facility] [employer] [address] [place] [phone] TONE STARKEY MD Hold Red Reviewed date:11/19/2024 04:25:35 PM Interpretation: Performing Lab:[facility], [address] [place] [phone] Notes/Report: Hold Red See Note Specimen held untested for 24 hours; Call to request Chemistry testing. Hold Green Gel Reviewed date:11/19/2024 04:25:46 PM Interpretation: Performing Lab:[facility], [address] [place] [phone] Notes/Report: Hold Green Gel See Note Specimen held untested for 24 hours; Call to request Chemistry testing. Reason For Referral No Information Medications Medication [...] 12 hrs for 7 days 06/14/2024 Not-Taking Ouwymcotfa-EHXK-Hympabfd 50-325-40 mg TAKE 1 TABLET EVERY 6 [...] 4 hrs for 30 days 04/01/2025 Active Immunizations Vaccine Route Administration Date Status Comme nts Fluarix Quadrivalent IM Intramuscular 04/03/2019 Administe filipe Prevnar 13 IM Intramuscular 06/19/2019 Administered SARS-COV-2 Pfizer Unknown 07/12/2020 Administered SARS-COV-2 Pfizer Unknown 08/02/2020 Administered SARS-COV-2 Pfizer Unknown 03/03/2021 Administered Fluarix Quadrivalent Unknown 03/29/2022 Administered SARS-COV-2 Pfizer Unknown 03/03/2021 Administered SARS-COV-2 Pfizer Unknown 09/24/2021 Administered SARS-COV-2 Pfizer Unknown 03/29/2022 Administered Fluarix Quadrivalent Unknown 11/20/2018 Refused PPSV23 (Pnemovax) Unknown 11/20/2018 Refused PPSV23 (Pnemovax) Unknown 11/19/2021 Refused Social History Tobacco Use: Social History Observation [...] ast year? No Points 0 Interpretation Negative Problems Problem Type SNOMED Code ICD Code Onset Dates Problem Status W/U Status Risk Notes Problem 95073400 Anxiety (F41.9) Active confirmed Problem 794379651 Other specified menopausal and perimenopausal disorders (N95.8) Active confirmed Problem 383732381 Rosacea (L71.9) Active confirmed Problem 182213528 Cervical disc di sease (M50.90) Active confirmed Problem 867873259 Migraine without aura and without status migrainosus, not intractable (G43.009) Active confirmed Problem 22731319 Bilateral carpal tunnel syndrome (G56.03) Active confirmed Problem 98314826 Hypercholesterem ia (E78.00) Active confirmed Vital Signs Temperature 97.9 degrees Fahrenheit 06/14/2024 eigh t is 118 at home BP not taken no temp Blood pressure diastolic 86 mm Hg 11/19/2024 krystle ght is down 2 pounds since 1-27-25 Height 60 in 04/01/2025 weight is 119 B P not taken at home no temp Blood pressure systolic 132 mm Hg 11/19/2024 schuyler ht is down 2 pounds since 07-02-24 Weight 119 lbs 04/01/2025 weight is 119 B P not taken at home no temp BMI 23.24 kg/m2 04/01/2025 weight is 119 B P not taken at home no temp Encounters Encounter Location Date Provider Diagnosis Rudy Proctor MD [address] [place] [id number] 05/15/2024 Rudy Proctor Hypercholesteremia E 78.00 Rudy Proctor MD [address] [place] [id number] 11/13/2024 Rudy Proctor Hypercholesteremia E 78.00 Rudy Proctor MD [address] [place] [address] [id number] 04/23/2024 Rudy Proctor Right Achilles tendi nitis M76.61 Rudy Proctor MD [address] [place] [id number] 05/22/2024 Rudy Proctor Hypercholesteremia E 78.00 and Achilles tendinitis of right lower extremity M76.61 Rudy Proctor MD [address] [place] [id number] 06/14/2024 Rudy Proctor Left non-suppurative otitis media H65.92 ; COVID U07.1 and COVID-19 U07.1 Rudy Proctor MD [address] [place] [id number] 07/02/2024 Rudy Proctor COVID-19 U07.1 and Achilles tendinitis, left leg M76.62 Rudy Proctor MD [address] [place] [id number] 11/19/2024 Rudy Proctor Achilles tendinitis of right lower extremity M76.61 ; Immunity status testing Z01.84 ; Otitis media H66.90 ; Hypercholesteremia E78.00 and Depression screening Z13.31 Rudy Proctor MD [address] [place] [id number] 04/01/2025 Rudy Proctor Wheezing R06.2 Rudy Proctor MD [address] [place] [address] Drive [address] [place], [place] [id number] 11/26/2024 Rudy Proctor Colon cancer screeni ng Z12.11 Assessments Encounter Date Diagnosis (ICD Code) Assessment Notes Treatment Notes Treatment Clinical Notes Section Notes 05/15/2024 Hypercholesteremia (ICD-10 - E78.00) 11/13/2024 Hypercholesteremia (ICD-10 - E78.00) 04/23/2024 Right Achilles tendinitis (ICD-10 - M76.61) rest and ice and use support. 05/22/2024 Hypercholesteremia (ICD-10 - E78.00) doing fairly well but exercise has decreased. lfts a little high, advised on diet and exercise, will continue current regiment as well 05/22/2024 Achilles tendinitis of right lower extremity (ICD-10 - M76.61) is getting better. will continue with present 06/14/2024 Left non-suppurative otitis media (ICD-10 - H65.92) patient verbalized understandingof medication and directions for use 06/14/2024 COVID (ICD-10 - U07.1) 07/02/2024 COVID-19 (ICD-10 - U07.1) doing well has recovered 07/02/2024 Achilles tendinitis, left leg (ICD-10 - M76.62) is gradually getting better. will send to PT to see if it can get even better 11/19/2024 Achilles tendinitis of right lower extremity (ICD-10 - M76.61) 11/19/2024 Immunity status testing (ICD-10 - Z01.84) Measles IGG pending 04/01/2025 Wheezing (ICD-10 - R06.2) patient verbalized understanding of medicationand directions for use 11/26/2024 Colon cancer screening (ICD-10 - Z12.11) 06/14/2024 COVID-19 (ICD-10 - U07.1) 11/19/2024 Otitis media (ICD-10 - H66.90) patient verbalized understanding of medication and directions for use 11/19/2024 Hypercholesteremia (ICD-10 - E78.00) stable, will continue current regiment 11/19/2024 Depression screening (ICD-10 - Z13.31) negative screen 07/02/2024 Other Phyical Therapy orders given to patient, she will set up her own appt. Plan Of Treatment Pending Test Test Name Order Date MEASLES ANTIBODY (IGG) 11/19/2024 Next Appt Details Provider Name:Rudy Chandler ier, 05/14/2025 07:30:00 AM, [address] [place] [address], [address] [facility], [place], [place], [phone], Provider Name:Rudy Chandler ier, 05/21/2025 09:00:00 AM, [address] [place] [address], [place] [address], [place], [place], [phone], Provider Name:Rudy Chandler ier, 11/08/2025 07:15:00 AM, [address] [place] [address], [place] [address], [place], [place], [phone], Provider Name:Rudy Chandler ier, 11/15/2025 11:00:00 AM, [address] [place] [address], [place] [address], [place], [place], [phone], Insurance Providers Payer Name Payer Address Payer Phone Subscriber Number Group Number Insured Name Patient Relationship to Insured Coverage Start Date Coverage End Date MEDICARE [employer] [address] [place] [address] [id number] Latoya Vega Self - patient is the insured [employer] [address] [place] [phone] [id number] Latoya Vega Self - patient is the insured Medical (General) History Medical History History ICD Code colonoscopy 2005 refuses further not able to tolerate higher dose statins citrizine is yrte advised to get shingrix 2022
== END 2025-04-09 08:30 | disposition home or self-care (01) ==
LOC: HO.MAMMO 08:29
PROVIDERS: PCP Internal Medicine; Visit Provider Internal Medicine
DX: Z12.31 Encounter for screening mammogram for malignant neoplasm of breast (principal)
CPT/HCPCS: 77063; 77067

== ENCOUNTER → 2025-04-09 08:45 | Outpatient (BNV) | payer MEDICARE, OTHER, SELFPAY | PROVIDERS: PCP Internal Medicine; Visit Provider Radiology Body Imaging | DX: Z12.31 Encounter for screening mammogram for malignant neoplasm of breast (principal) | CPT/HCPCS: 77063; 77067 ==

== ENCOUNTER 2025-05-14 10:47 | Outpatient (REF) | payer MEDICARE, OTHER, SELFPAY ==
[2025-05-14 11:16] LABS: Alanine Aminotransferase 33 U/L (0-31); Albumin Level 4.9 g/dL (3.5-5.0); Alkaline Phosphatase 62 U/L (39-117); Aspartate Amino Transferase 31 U/L (5-31); Cholesterol 193 mg/dL (<200); HDL Cholesterol 57 mg/dL (>40); Total Protein 7.4 g/dL (6.5-8.0); Triglycerides 160 mg/dL (<150)
[2025-05-14 13:02] LABS: Reflex LDLD? No
== END 2025-05-14 10:48 | disposition home or self-care (01) ==
LOC: HO.LNP 10:47
PROVIDERS: Visit Provider Internal Medicine
DX: E78.00 Pure hypercholesterolemia, unspecified (principal)
CPT/HCPCS: 80061; 80076